=== PATIENT | female | born 1955 | race Caucasian/White ===

== ENCOUNTER → 2016-09-06 | Outpatient (CLI) | payer OTHER ==
[~2016-09-06] MED LIST: ALBUAER2 INH; AMLO10TA2 PO; BENA20TA14 PO; BUPRTAB PO; ERGO500011 PO; FLNIN/; FLUO20CA36 PO; FLV1 PO; LBT/300 PO; LBT200 PO; LPT/20 PO; METF-384 PO; METH2.5T PO; NITR100C2 PO; ONDA4TAB46 PO; SITA1TAB27 PO; VNTHFA/IN INH
[2016-09-06 13:03] LABS: ESTIMATED AVERAGE GLUCOSE 203 mg/dl; HA1C FLAG Normal (Normal)
[2016-09-06 13:17] LABS: ALT/SGPT 47 U/L (12-78); AST/SGOT 49 U/L (15-37); BLOOD UREA NITROGEN 12 mg/dl (7-18); BUN/CREATININE RATIO 14.6 (10-20); CALCIUM 10.2 mg/dl (8.5-10.1); CARBON DIOXIDE 25 mmol/L (21-32); CHLORIDE 102 mmol/L (98-107); CREATININE 0.81 mg/dl (0.60-1.20); GLUCOSE 211 mg/dl (70-99); POTASSIUM 4.3 mmol/L (3.5-5.1); SODIUM 137 mmol/L (136-145)
[2016-09-06 13:28] LABS: ALKALINE PHOSPHATASE 112 U/L (45-117); CHOLESTEROL 146 mg/dl (0-200); CHOLESTEROL/HDL RATIO 2.9; HDL CHOLESTEROL 50 mg/dl; LDL CHOLESTEROL CALCULATED 59 mg/dl; TRIGLYCERIDES 184 mg/dl (0-150); VERY LOW DENSITY LIPOPROT CALC 37 mg/dl
== END | disposition home or self-care (01) ==
LOC: C.LAB1850 09:58
PROVIDERS: ATTEND Family Medicine
DX: L40.50 Arthropathic psoriasis, unspecified (principal); E78.5 Hyperlipidemia, unspecified; I10 Essential (primary) hypertension; F32.9 Major depressive disorder, single episode, unspecified; E11.9 Type 2 diabetes mellitus without complications; Z11.59 Encounter for screening for other viral diseases; E55.9 Vitamin D deficiency, unspecified

== ENCOUNTER → 2016-09-23 | Outpatient (CLI) | payer OTHER ==
[~2016-09-23] MED LIST changes: +ERGO1CAP41 PO; -ERGO500011 PO; +NITR100C PO; -NITR100C2 PO
--- NOTE | 2016-09-24 12:31 | MAMMOGRAPHY REPORT ---
BILATERAL DIGITAL SCREENING MAMMOGRAM WITH CAD: 09/23/2016 CLINICAL HISTORY: Routine screening. TECHNIQUE: Current study was also evaluated with a Computer Aided Detection (CAD) system. Bilateral CC and MLO views were obtained. COMPARISON: Comparison is made to exams dated: 07/16/2015 mammogram, 06/27/2014 ultrasound, 06/27/2014 ma mmogram, and 05/29/2014 mammogram - [facility]. BREAST COMPOSITION: There are scattered areas of fibroglandular density in both breasts. FINDINGS: There is an asymmetry in the right lateral posterior breast at approximately 9:00, which a ppears stable in size compared to prior exams, however, on one of the cc views there is questionable architectural distortion associated with the asymmetry. Although the questionable distortion may be related to a skin fold, recommend spot compression tomosynthesis views and possible breast ultrasound for further evaluation. Calcifications are seen in association with the asymmetry, which appear unc hanged. The remainder of both breasts are stable compared to prior exams, without suspicious masses, calcific ations, or areas of architectural distortion noted. Bilateral asymmetries and scattered bilateral be nign-appearing calcifications are not significantly changed. IMPRESSION: ACR BI-RADS CATEGORY 0: INCOMPLETE EVALUATION: NEED ADDITIONAL IMAGING EVALUATION Right breast asymmetry with associated calcifications and possible associated architectural distortio n, for which additional imaging evaluation is recommended. The patient will be called to schedule an appointment. Approximately 10% of breast cancers are not detected with mammography. A negative mammographic report should not delay biopsy if a clinically suggestive mass is present. Alba Montague M.D. ah/:09/23/2016 16:34:15 Collection Team Lead: River DOLAN(Bowen)(M), [facility] letter sent: Addl Imaging 0 BI-RADS Code: ACR BI-RADS Category 0: Incomplete Evaluation: Need Additional Imaging Evaluation
== END | disposition home or self-care (01) ==
LOC: C.MAMM 10:06
PROVIDERS: ATTEND Nurse Practitioner Adult Health
DX: Z12.31 Encounter for screening mammogram for malignant neoplasm of breast (principal); N64.89 Other specified disorders of breast; R92.1 Mammographic calcification found on diagnostic imaging of breast

== ENCOUNTER 2016-09-27 11:34 | Emergency (ER) | payer OTHER ==
[~2016-09-27] VITALS: Ht 165.1 cm; Wt 142.8 kg
[~2016-09-27 11:34] MED LIST changes: -BUPRTAB PO; -ERGO1CAP41 PO; -FLV1 PO; -LBT/300 PO; -LPT/20 PO; -METF-384 PO; -METH2.5T PO; -ONDA4TAB46 PO; -SITA1TAB27 PO; -VNTHFA/IN INH
[2016-09-27 11:54] VITALS: TEMP 36.8; Ht 165.1 cm; Wt 142.8 kg
[2016-09-27 12:30] LABS: BASO % 0.3 %; BASO ABS # 0.03 K/uL (0-0.2); COMPLETE YES; EOS % 1.8 %; HEMATOCRIT 33.3 % (37-47); IG% 0.5 %; LYMPH % 18.3 %; MEAN CELL VOLUME 86.7 fL (80-100); MEAN CORPUSCULAR HEMOGLOBIN 25.8 pg (25-34); MEAN CORPUSCULAR HGB CONC 29.7 g/dl (32-36); MONO % 4.6 %; NEUT % 74.5 %; PLATELET COUNT 387 K/uL (130-400); RED BLOOD COUNT 3.84 M/uL (4.2-5.4); WHITE BLOOD COUNT 9.86 K/uL (4.8-10.8)
[2016-09-27 12:46] LABS: BUN/CREATININE RATIO 14.3 (10-20); CREATININE 0.8 mg/dl (0.60-1.20); POTASSIUM 3.9 mmol/L (3.5-5.1)
[2016-09-27] MEDS ORDERED: LPT/20 PO (13:24)
[2016-09-27] MEDS ORDERED: BUPRTAB PO (13:24)
[2016-09-27] MEDS ORDERED: METH2.5T PO (13:24)
[2016-09-27] MEDS ORDERED: LBT/300 PO (13:24)
[2016-09-27] MEDS ORDERED: METF-384 PO (13:24)
[2016-09-27] MEDS ORDERED: FLV1 PO (13:24)
[2016-09-27] MEDS ORDERED: SITA1TAB27 PO (13:24)
[2016-09-27] MEDS ORDERED: ERGO1CAP41 PO (13:25)
[2016-09-27] MEDS ORDERED: VNTHFA/IN INH (13:26)
[2016-09-27] MEDS ORDERED: SODIUM CHLORIDE 0.9% 1000ML 1,000 ML IV ONE (13:30)
[2016-09-27] MEDS ORDERED: ONDANSETRON INJ 2 MG/ML 2 ML VIAL IV PRN (13:30)
[2016-09-27 13:55] LABS: URINE APPEARANCE CLEAR (CLEAR); URINE BILIRUBIN NEG (NEG); URINE COLOR YELLOW; URINE NITRITE NEG (NEG); URINE SPECIFIC GRAVITY 1.018 (1.000-1.030); UROBILINOGEN NEG (NEG)
[2016-09-27 13:59] LABS: MANUAL MICROSCOPIC REQUIRED? NO; REVIEW REQ? NO
--- NOTE | 2016-09-27 16:42 | DIAGNOSTIC IMAGING REPORT ---
CT SCAN OF THE ABDOMEN AND PELVIS WITH IV CONTRAST CLINICAL HISTORY: Generalized abdominal pain. Nausea and vomiting. Diarrhea. COMPARISON STUDY: No priors. TECHNIQUE: Following the IV administration of 119 cc of Optiray 320, CT scan of the abdomen and pelvis is performed from the lung bases to the proximal femora. Images are reviewed in the axial, sagittal, and coronal planes. IV contrast was administered without complication. Automated dose control exposure was utilized. The examination is degraded by large body habitus, and by streak artifact from the body wall abutting the CT gantry. CT DOSE: 1710.81 mGy.cm FINDINGS: Lung bases: The heart is normal in size and without pericardial effusion. The coronary arteries are densely calcified. The lung bases are clear. There is a tiny hiatal hernia. Liver: Evaluation of the liver significantly degraded by streak artifact. The contrast-enhanced liver is enlarged, measuring 24.6 cm in length. The liver demonstrates diffusely diminished attenuation consistent with severe hepatic steatosis. Fatty sparing is noted adjacent to gallbladder fossa. There is no intrahepatic biliary ductal dilatation. The hepatic veins and portal veins are patent. Gallbladder: Unremarkable. Spleen: The spleen is mildly enlarged measuring 13.8 cm in length. Pancreas: There is mild/moderate glandular atrophy of the pancreas. The pancreas is otherwise grossly unremarkable. Adrenal glands: Unremarkable. Kidneys: The contrast enhanced kidneys demonstrate mild cortical atrophy and are without hydronephrosis. The kidneys enhance symmetrically. Renal cysts measure up to 2.3 cm. Additional subcentimeter cortical hypodensities also likely represent cysts but are too small for definitive catheterization. Abdominal vasculature: The abdominal aorta is normal in course and caliber noting moderate atherosclerotic calcification. Bowel: The small bowel and colon are normal in course and caliber. The appendix is not identified and reported surgically absent. Peritoneum: There is no intraperitoneal free air or abdominal ascites. A small fat-containing umbilical hernia is noted. Lymphadenopathy: None. Pelvic viscera: The bladder, uterus, and adnexa are normal as visualized. Skeletal structures: The skeletal structures are osteopenic. There is mild lumbosacral spondylosis. No lytic or blastic lesions are seen. IMPRESSION: 1. There are no acute infectious or inflammatory findings in the abdomen or pelvis. 2. Hepatomegaly and severe hepatic steatosis. 3. Mild splenomegaly. 4. Additional findings as above. Electronically signed by: Luis Antonio Avelar M.D. 09/27/2016 4:41 PM Dictated Date/Time: 09/27/2016 4:36 PM
[2016-09-27 18:50] VITALS: BP 160/88; PULSE 92; O2SAT 96
[2016-09-27] MEDS ORDERED: ONDA4TAB46 PO (18:50)
[2016-09-27] MEDS ORDERED: ONDANSETRON HOME PACK 4MG OD TAB PO ONE (19:00)
--- NOTE | 2016-09-27 22:51 | EMERGENCY ROOM VISIT NOTE ---
History First contact with patient: 13:07 Chief Complaint: NAUSEA Stated Complaint: n,v Nursing Triage Summary: pt arrives via BLS Per BLS she reports nausea and vomiting, had 3 episodes of dry heaving They also reported she increased her metformin to 2000MG from 1000MG Per patient she started last night with diarrhea, it went away throughout the night, she is now nauseous and has been dry heaving she also reports general achy body and a head ache History of Present Illness The patient is a 61 year old female who presents to the Emergency Room with complaints of nausea, vomiting and diarrhea that have been going on for approximately 3 days. The patient initially started with watery diarrhea. She also complained of some sharp abdominal pain that now she describes as a cramping sensation in the mid upper abdomen. She describes it more as an annoyance as opposed to a sharp pain. Her vomiting started this morning. It was bilious in nature. She also reports dry heaving. She denies any fever or chills. She denies any sick contacts. She has not recently been on antibiotics. No recent travel. The patient did however recently have a increase in her dose of metformin. They increased her dose from 500 mg twice daily to 1000 g twice daily on Tuesday. Her symptoms started shortly thereafter. Review of Systems 10 system review performed and negative unless noted in HPI or below Past Medical/Surgical History Hypertension Type 2 diabetes Hyperlipidemia History of hemorrhagic stroke Status post cholecystectomy, appendectomy Family History Hypertension Diabetes Social History Smoking Status: Never Smoker Drug Use: none Housing Status: lives alone Occupation Status: employed Current/Historical Medications Scheduled Amlodipine Besylate (Norvasc), 10 MG PO DAILY Atorvastatin (Atorvastatin Calcium), 20 MG PO DAILY Bupropion Hcl (Wellbutrin Xl), 150 MG PO DAILY Ergocalciferol (Vitamin D 12482 Unit), 50,000 UNITS PO WK Fluticasone Propionate (Fluticasone Propionate), 1 SPRAY NA DAILY Folic Acid (Folic Acid), 1 MG PO DAILY Labetalol Hcl (Normodyne), 300 MG PO DAILY Metformin Hcl (Glucophage), 1,000 MG PO Q12 Methotrexate (Methotrexate), 20 MG PO WK Sitagliptin (Januvia), 100 MG PO DAILY Scheduled PRN Albuterol Hfa (Ventolin Hfa), 2 PUFFS INH Q4 PRN for SOB/Wheezing Ondansetron Hcl (Zofran), 4 MG PO Q6H PRN for Nausea Allergies Coded Allergies: Aspirin (Verified Allergy, Unknown, hives, 04/16/14) Penicillins (Verified Allergy, Unknown, hives, 04/16/14) Physical Exam Vital Signs Date Time Temp Pulse Resp B/P (MAP) Pulse Ox O2 Delivery O2 Flow Rate FiO2 09/27/16 18:50 92 160/88 96 09/27/16 16:36 82 20 154/67 96 Room Air 09/27/16 16:04 85 25 94 09/27/16 15:36 159/92 09/27/16 15:34 92 23 173/105 96 09/27/16 15:34 91 20 159/92 98 Room Air 09/27/16 15:04 88 91 09/27/16 14:34 88 93 09/27/16 14:32 162/86 09/27/16 14:32 88 16 162/86 95 Room Air 09/27/16 14:04 84 24 95 09/27/16 13:34 87 19 98 09/27/16 13:04 81 25 94 09/27/16 12:36 81 09/27/16 12:34 84 25 95 09/27/16 12:33 82 16 140/71 96 Room Air 09/27/16 12:31 140/71 09/27/16 11:54 36.8 83 20 163/92 96 Room Air Physical Exam VITALS: Vitals are noted on the nurse's note and reviewed by myself. Vital signs stable. GENERAL: 61-year-old obese female, in no acute distress, nondiaphoretic, well- developed well-nourished. SKIN: The skin was warm and dry HEAD: Normocephalic atraumatic. MOUTH: Mucous membranes fairly moist HEART: Regular rate and rhythm without murmurs gallops or rubs. LUNGS: Clear to auscultation bilaterally without wheezes, rales or rhonchi. No accessory muscle use. ABDOMEN: Positive bowel sounds x 4.Soft, tenderness to palpation noted in the right upper quadrant. No guarding or rebound tenderness appreciated. MUSCULOSKELETAL: No muscle atrophy, erythema, or edema noted. Strength 5/5 throughout. NEURO: Patient was alert and oriented to person place and time. No focal neurological deficits. Medical Decision & Procedures ER Provider Diagnostic Interpretation: Patient Name: JEMMA LUO Unit Number: [id number] Dictated: 09/27/161635 Transcribed: 09/27/161635 EV Printed Date/Time: [~ rep prt dt]/[~ rep prt tm] [~ rep ct labl] - [~ rep ct ivnm] [facility] [place] [place] [address] Dictated: 09/27/161635 Transcribed: 09/27/161635 EV Printed Date/Time: [~ rep prt dt]/[~ rep prt tm] [~ rep ct labl] - [~ rep ct ivnm] Patient: JEMMA LUO Address1: [address] [place] [address] Rec: [id number] Address2: Acct ID: [id number] [place] Zip: [place] [address] Date: 1955 Sex: F Room/Bed: Ref Phy: Karen Moran C.R.NPaigePPaige SC: COURTNEY Att Phy: Report #: [id number] Kenzie Phy: Karen Moran C.R.NJules Test: APW Admit Phy: Program Evaluation Consultant: CANDY Interpreting Phy: Luis Antonio Avelar M.D. Diagnosis: n,v Ordering Phy: Reena Moran PA-C Service Date: 09/27/16 Admit Date: 09/27/16 MNE: [id number] CONF: DICTATED BY: Luis Antonio Avelar M.D.]] CC: Gallo Mcfarlane M.D. Ritter, Heidi, C.R.N.P. Urban, Angela P., PA-C Endcc: [~ rep ct add3]] CT SCAN OF THE ABDOMEN AND PELVIS WITH IV CONTRAST CLINICAL HISTORY: Generalized abdominal pain. Nausea and vomiting. Diarrhea. COMPARISON STUDY: No priors. TECHNIQUE: Following the IV administration of 119 cc of Optiray 320, CT scan of the abdomen and pelvis is performed from the lung bases to the proximal femora. Images are reviewed in the axial, sagittal, and coronal planes. IV contrast was administered without complication. Automated dose control exposure was utilized. The examination is degraded by large body habitus, and by streak artifact from the body wall abutting the CT gantry. CT DOSE: 1710.81 mGy.cm FINDINGS: Lung bases: The heart is normal in size and without pericardial effusion. The coronary arteries are densely calcified. The lung bases are clear. There is a tiny hiatal hernia. Liver: Evaluation of the liver significantly degraded by streak artifact. The contrast-enhanced liver is enlarged, measuring 24.6 cm in length. The liver demonstrates diffusely diminished attenuation consistent with severe hepatic steatosis. Fatty sparing is noted adjacent to gallbladder fossa. There is no intrahepatic biliary ductal dilatation. The hepatic veins and portal veins are patent. Gallbladder: Unremarkable. Spleen: The spleen is mildly enlarged measuring 13.8 cm in length. Pancreas: There is mild/moderate glandular atrophy of the pancreas. The pancreas is otherwise grossly unremarkable. Adrenal glands: Unremarkable. Kidneys: The contrast enhanced kidneys demonstrate mild cortical atrophy and are without hydronephrosis. The kidneys enhance symmetrically. Renal cysts measure up to 2.3 cm. Additional subcentimeter cortical hypodensities also likely represent cysts but are too small for definitive catheterization. Abdominal vasculature: The abdominal aorta is normal in course and caliber noting moderate atherosclerotic calcification. Bowel: The small bowel and colon are normal in course and caliber. The appendix is not identified and reported surgically absent. Peritoneum: There is no intraperitoneal free air or abdominal ascites. A small fat-containing umbilical hernia is noted. Lymphadenopathy: None. Pelvic viscera: The bladder, uterus, and adnexa are normal as visualized. Skeletal structures: The skeletal structures are osteopenic. There is mild lumbosacral spondylosis. No lytic or blastic lesions are seen. IMPRESSION: 1. There are no acute infectious or inflammatory findings in the abdomen or pelvis. 2. Hepatomegaly and severe hepatic steatosis. 3. Mild splenomegaly. 4. Additional findings as above. Electronically signed by: Luis Antonio Avelar M.D. 09/27/2016 4:41 PM Dictated Date/Time: 09/27/2016 4:36 PM The status of this report is Signed. Draft = Not yet reviewed or approved by Radiologist. Signed = Reviewed and approved by Radiologist. <AttendingPhy></AttendingPhy> <FamilyPhy>Karen Moran ,Joi.R.N.P.</FamilyPhy> < PrimaryPhy>Karen Moran C.R.N.P.</PrimaryPhy> <UnitNumber>[id number]</ UnitNumber> <VisitNumber>[id number]</VisitNumber> <PatientName>JEMMA LUO</PatientName> <DateOfBirth>1955</DateOfBirth> <Location>[facility]</ Location> <ServiceDate>09/27/16</ServiceDate> <MNE>ESINDI</MNE> <OrderingPhy> Reena Moran PA-C</OrderingPhy> <OrderingPhyMNE>f rep ord dr kennedy</ OrderingPhyMNE> <DictatingPhyMNE>f rep dict dr kennedy</DictatingPhyMNE> <CCListMNE> f rep ct mne</CCListMNE> <AdmittingPhyMNE>f pt admit dr kennedy</AdmittingPhyMNE> < AttendingPhyMNE>f pt attend dr kennedy</AttendingPhyMNE> <ConsultingPhyMNE>f pt consult dr kennedy</ConsultingPhyMNE> <FamilyPhyMNE>f pt fam dr kennedy</FamilyPhyMNE> <OtherPhyMNE>f pt other dr kennedy</OtherPhyMNE> < PrimaryPhyMNE>f pt prim care dr kennedy</PrimaryPhyMNE> <ReferringPhyMNE>f pt referring dr kennedy</ReferringPhyMNE> Laboratory Results 09/27/16 11:51 Red Blood Count 3.84, Mean Corpuscular Volume 86.7, Mean Corpuscular Hemoglobin 25.8, Mean Corpuscular Hemoglobin Concent 29.7, Mean Platelet Volume 10.0, Neutrophils (%) (Auto) 74.5, Lymphocytes (%) (Auto) 18.3, Monocytes (%) (Auto) 4.6, Eosinophils (%) (Auto) 1.8, Basophils (%) (Auto) 0.3, Neutrophils # (Auto) 7.35, Lymphocytes # (Auto) 1.80, Monocytes # (Auto) 0.45, Eosinophils # (Auto) 0.18, Basophils # (Auto) 0.03 09/27/16 11:51 Test 09/27/16 11:51 09/27/16 12:28 09/27/16 13:29 White Blood Count 9.86 K/uL (4.8-10.8) Red Blood Count 3.84 M/uL (4.2-5.4) Hemoglobin 9.9 g/dL (12.0-16.0) Hematocrit 33.3 % (37-47) Mean Corpuscular Volume 86.7 fL (80-100) Mean Corpuscular Hemoglobin 25.8 pg (25-34) Mean Corpuscular Hemoglobin Concent 29.7 g/dl (32-36) Platelet Count 387 K/uL (130-400) Mean Platelet Volume 10.0 fL (7.4-10.4) Neutrophils (%) (Auto) 74.5 % Lymphocytes (%) (Auto) 18.3 % Monocytes (%) (Auto) 4.6 % Eosinophils (%) (Auto) 1.8 % Basophils (%) (Auto) 0.3 % Neutrophils # (Auto) 7.35 K/uL (1.4-6.5) Lymphocytes # (Auto) 1.80 K/uL (1.2-3.4) Monocytes # (Auto) 0.45 K/uL (0.11-0.59) Eosinophils # (Auto) 0.18 K/uL (0-0.5) Basophils # (Auto) 0.03 K/uL (0-0.2) RDW Standard Deviation 62.7 fL (36.4-46.3) RDW Coefficient of Variation 19.7 % (11.5-14.5) Immature Granulocyte % (Auto) 0.5 % Immature Granulocyte # (Auto) 0.05 K/uL (0.00-0.02) Anion Gap 9.0 mmol/L (3-11) Est Creatinine Clear Calc Drug Dose 105.1 ml/min Estimated GFR () 91.6 Estimated GFR (Non- 79.0 BUN/Creatinine Ratio 14.3 (10-20) Calcium Level 10.0 mg/dl (8.5-10.1) Total Bilirubin 0.4 mg/dl (0.2-1) Aspartate Amino Transf (AST/SGOT) 63 U/L (15-37) Alanine Aminotransferase (ALT/SGPT) 51 U/L (12-78) Alkaline Phosphatase 99 U/L (45-117) Total Protein 6.9 gm/dl (6.4-8.2) Albumin 3.4 gm/dl (3.4-5.0) Globulin 3.5 gm/dl (2.5-4.0) Albumin/Globulin Ratio 1.0 (0.9-2) Lipase 140 U/L (73-393) Bedside Glucose 183 mg/dl (70-90) Urine Color YELLOW Urine Appearance CLEAR (CLEAR) Urine pH 5.0 (4.5-7.5) Urine Specific [place] 1.018 (1.000-1.030) Urine Protein NEG (NEG) Urine Glucose (UA) NEG (NEG) Urine Ketones NEG (NEG) Urine Occult Blood NEG (NEG) Urine Nitrite NEG (NEG) Urine Bilirubin NEG (NEG) Urine Urobilinogen NEG (NEG) Urine Leukocyte Esterase NEG (NEG) Medications Administered Medications (Trade) Dose Ordered Sig/Carine Route Start Time Stop Time Status Last Admin Dose Admin Sodium Chloride 1,000 ml @ 999 mls/hr Q1H1M ONCE IV 09/27/16 13:30 09/27/16 14:30 DC 09/27/16 13:30 999 MLS/HR Ondansetron HCl (Zofran Inj) 4 mg Q2H PRN IV 09/27/16 13:30 09/27/16 19:18 DC 09/27/16 13:39 4 MG ED Course Patient was seen and examined A saline lock was established, labs were drawn The patient was given 1 L normal saline bolus. She was also given Zofran [address] the abdomen and pelvis were performed The patient was reevaluated. Her nausea was better. She had one more bout of diarrhea. She was given an additional 500 mL of normal saline. The patient was again reassessed. We discussed the results of her imaging and lab work. A rectal exam was performed. The patient was given crackers and cristobal john, which she tolerated without any nausea Discharge instructions were reviewed, and the patient was discharged in good condition Medical Decision DIFFERENTIAL DIAGNOSIS: Gastroenteritis, Hepatitis, cholecystitis, cholangitis, biliary colic, pancreatitis, appendicitis, inguinal hernia, nephrolithiasis, inflammatory bowel disease, mesenteric adenitis, peptic ulcer disease, GERD, gastritis, pancreatitis,, bowel obstruction, splenic infarct, diverticulitis, mesenteric ischemia, metabolic, peritonitis, GI bleeding among others. This patient is a 61-year-old female with a main complaint of vomiting, abdominal pain and diarrhea over the last several days. On exam, she was mildly tender in the right upper quadrant. Given her recent medication change ( increase in metformin)pancreatitis was suspected. Imaging did not show any signs of pancreatitis or any acute findings such as an infectious etiology- colitis. She is afebrile. There is no leukocytosis. I reviewed her outpatient records. The patient's hemoglobin has dropped from 12 in 2015 to 10 a rectal exam was guaiac negative today. She denied any signs of GI bleeding such as dark stools or bright red blood in her stool. I encouraged her to follow up closely with her primary care physician, particularly in regards to her metformin and her H&H. The patient's metformin was changed the day her symptoms started. This could be partially medication related. Obviously, the patient was instructed to hold her metformin temporarily given the IV dye that she received for her CAT scan. She was instructed to follow-up with her primary care physician to further discuss the dosage. She was comfortable being discharged home. She agrees to return to the emergency department with any new or worsening symptoms. Impression Primary Impression: Abdominal pain, vomiting, and diarrhea Departure Information Prescriptions Ondansetron Hcl (ZOFRAN) 4 Mg Tab 4 MG PO Q6H Y for Nausea, #20 TAB Prov: Reena Moran PA-C 09/27/16 Referrals Karen Moran C.R.N.P. (PCP) Patient Instructions My [facility]
== END 2016-09-27 18:50 | disposition home or self-care (01) ==
LOC: EDBD 11:34 → C.EDB 11:35
DX: R10.10 Upper abdominal pain, unspecified (principal); R11.2 Nausea with vomiting, unspecified; R19.7 Diarrhea, unspecified; I10 Essential (primary) hypertension; E11.9 Type 2 diabetes mellitus without complications; E78.5 Hyperlipidemia, unspecified; Z86.73 Personal history of transient ischemic attack (TIA), and cerebral infarction without residual deficits; Z79.84 Long term (current) use of oral hypoglycemic drugs; Z83.3 Family history of diabetes mellitus; Z82.49 Family history of ischemic heart disease and other diseases of the circulatory system

== ENCOUNTER → 2016-10-05 | Outpatient (CLI) | payer OTHER ==
[~2016-10-05] MED LIST changes: -ALBUAER2 INH; -BENA20TA14 PO; +BUPRTAB PO; +ERGO1CAP41 PO; -FLUO20CA36 PO; +FLV1 PO; +LBT/300 PO; -LBT200 PO; +LPT/20 PO; +METF-384 PO; +METH2.5T PO; -NITR100C PO; +ONDA4TAB46 PO; +SITA1TAB27 PO; +VNTHFA/IN INH
--- NOTE | 2016-10-05 13:54 | MAMMOGRAPHY REPORT ---
UNILATERAL RIGHT DIGITAL DIAGNOSTIC MAMMOGRAM TOMOSYNTHESIS: 10/05/2016 CLINICAL HISTORY: 61-year-old woman called back from screening mammography for questionable obiee obia solution architect ural distortion associated with an asymmetry in the lateral posterior right breast. TECHNIQUE: Spot magnification right CC, ML and spot compression CC and MLO 2-D digital and tomosynth esis images of the right breast were obtained. COMPARISON: Comparison is made to exams dated: 09/23/2016 mammogram, 07/16/2015 mammogram, 06/27/2014 ul trasound, 06/27/2014 mammogram, and 05/29/2014 mammogram - [facility]. BREAST COMPOSITION: The tissue of the right breast is almost entirely fatty. FINDINGS: There is a focal asymmetry with associated obtained and amorphous microcalcification in th e approximate 8:00 posterior right breast, measuring 6 x 18 mm. This asymmetry is stable in size and the microcalcifications appear similar dating back to at least 05/29/2014. A portion of this asymme try and microcalcification, the anterior aspect, or present on the outside mammogram dated 02/24/2011 , but the entire asymmetry is not seen well enough to compare accurate measurements. There is no per sistent architectural distortion on the spot compression tomosynthesis views in this area. Given at least 2 years of mammographic stability this is most likely benign. However, given the focal nature of the asymmetry and microcalcification, definitive characterization with tissue sampling is recommen ded to exclude the possibility of DCIS. IMPRESSION: ACR BI-RADS CATEGORY 4B: INTERMEDIATE SUSPICION FOR MALIGNANCY With the slight differences in positioning and technique, the 6 x 18 mm focal asymmetry with associat ed punctate and amorphous microcalcification in the 8:00 posterior right breast appears stable dating back to June 2014. The anterior portion of this asymmetry and microcalcification was visualized da ting back to 2010, but accurate comparison measurements could not be obtained from that exam. There is no definite associated distortion, however the asymmetry remains indeterminate given the discrete focal nature and definitive characterization with a stereotactic guided biopsy was recommended. Thes e results and recommendations were discussed with the patient at the time of the exam and she prefers to follow this mammographic finding in 6 months. After further discussion this seems reasonable giv en that it does not appear significantly changed over the past 2 years, and will therefore likely not be significantly changed in 6 months. Approximately 10% of breast cancers are not detected with mammography. A negative mammographic report should not delay biopsy if a clinically suggestive mass is present. Vannesa Heaton M.D. ay/:10/05/2016 12:42:22 Licensed Loan Officer Assistant: Chayo GARCIA)(Dom), [facility] letter sent: Abnormal 4/5 BI-RADS Code: ACR BI-RADS Category 4B: Intermediate Suspicion For Malignancy
== END | disposition home or self-care (01) ==
LOC: C.MAMM 10:17
PROVIDERS: ATTEND Nurse Practitioner Adult Health
DX: R92.2 Inconclusive mammogram (principal); N64.89 Other specified disorders of breast

== ENCOUNTER → 2016-10-07 | Outpatient (CLI) | payer OTHER ==
[2016-10-07 14:36] LABS: BASO % 0.5 %; BASO ABS # 0.06 K/uL (0-0.2); COMPLETE YES; EOS % 1.8 %; HEMATOCRIT 34.1 % (37-47); IG% 0.7 %; LYMPH % 16.5 %; LYMPH ABS # 1.88 K/uL (1.2-3.4); MEAN CELL VOLUME 86.5 fL (80-100); MEAN CORPUSCULAR HEMOGLOBIN 26.1 pg (25-34); MEAN CORPUSCULAR HGB CONC 30.2 g/dl (32-36); MEAN PLATELET VOLUME 9.8 fL (7.4-10.4); MONO % 8.9 %; NEUT % 71.6 %; PLATELET COUNT 420 K/uL (130-400); RED BLOOD COUNT 3.94 M/uL (4.2-5.4); WHITE BLOOD COUNT 11.39 K/uL (4.8-10.8)
[2016-10-07 14:51] LABS: BLOOD UREA NITROGEN 9 mg/dl (7-18); BUN/CREATININE RATIO 10.7 (10-20); CALCIUM 10.5 mg/dl (8.5-10.1); CARBON DIOXIDE 27 mmol/L (21-32); CHLORIDE 102 mmol/L (98-107); CREATININE 0.87 mg/dl (0.60-1.20); GLUCOSE 181 mg/dl (70-99); POTASSIUM 4.5 mmol/L (3.5-5.1); SODIUM 137 mmol/L (136-145)
[2016-10-07 14:52] LABS: TOTAL IRON BINDING CAPACITY 391 mcg/dl (250-450)
== END | disposition home or self-care (01) ==
LOC: C.LAB1850 12:40
PROVIDERS: ATTEND Nurse Practitioner Adult Health
DX: D64.9 Anemia, unspecified (principal)

== ENCOUNTER → 2016-12-07 | Outpatient (CLI) | payer OTHER ==
[2016-12-07 14:54] LABS: HEMATOCRIT 32.6 % (37-47); MEAN CELL VOLUME 84.5 fL (80-100); MEAN CORPUSCULAR HEMOGLOBIN 25.4 pg (25-34); MEAN CORPUSCULAR HGB CONC 30.1 g/dl (32-36); MEAN PLATELET VOLUME 9.9 fL (7.4-10.4); PLATELET COUNT 431 K/uL (130-400); RED BLOOD COUNT 3.86 M/uL (4.2-5.4); WHITE BLOOD COUNT 11.65 K/uL (4.8-10.8)
[2016-12-07 15:02] LABS: ALT/SGPT 45 U/L (12-78); AST/SGOT 43 U/L (15-37); BLOOD UREA NITROGEN 11 mg/dl (7-18); BUN/CREATININE RATIO 12.3 (10-20); CALCIUM 10.8 mg/dl (8.5-10.1); CARBON DIOXIDE 28 mmol/L (21-32); CHLORIDE 101 mmol/L (98-107); CREATININE 0.86 mg/dl (0.60-1.20); GLUCOSE 169 mg/dl (70-99); POTASSIUM 4.2 mmol/L (3.5-5.1); SODIUM 134 mmol/L (136-145)
[2016-12-07 15:05] LABS: ALB/GLOB RATIO 0.9 (0.9-2); ALKALINE PHOSPHATASE 112 U/L (45-117)
[2016-12-08 05:59] LABS: ESTIMATED AVERAGE GLUCOSE 177 mg/dl; HA1C FLAG Normal (Normal)
== END | disposition home or self-care (01) ==
LOC: C.LAB1850 12:58
PROVIDERS: ATTEND Nurse Practitioner Adult Health
DX: Z79.899 Other long term (current) drug therapy (principal)

== ENCOUNTER → 2016-12-16 | Outpatient (CLI) | payer OTHER ==
[2016-12-16 14:59] LABS: ALT/SGPT 38 U/L (12-78); AST/SGOT 33 U/L (15-37); BLOOD UREA NITROGEN 11 mg/dl (7-18); BUN/CREATININE RATIO 11.9 (10-20); CALCIUM 10.4 mg/dl (8.5-10.1); CARBON DIOXIDE 29 mmol/L (21-32); CHLORIDE 102 mmol/L (98-107); GLUCOSE 169 mg/dl (70-99); POTASSIUM 4.4 mmol/L (3.5-5.1); SODIUM 135 mmol/L (136-145)
[2016-12-16 15:02] LABS: ALKALINE PHOSPHATASE 118 U/L (45-117)
--- NOTE | 2016-12-27 09:51 | CODING QUERY MEDICAL NECESSITY ---
CQSUPPORTING DIAGNOSIS NEEDED A supporting diagnosis is required for the test/procedure performed on this patient in order for us to be reimbursed by the patient's insurance. Please provide a supporting diagnosis for the following test/procedure listed below next to the test name along with your signature. *If there is no additional diagnosis for this patient that would support the following test/procedure please document that below next to the test/procedure. Test(s)/Procedure(s) that require a supporting diagnosis: DOS 12/16/16 VITAMIN D TEST Provider Signature: Date: Thank you Jumana Waller Health Information Management Once completed, please kindly fax back to [phone] For questions please call [phone]
== END | disposition home or self-care (01) ==
LOC: C.LAB1850 12:56
PROVIDERS: ATTEND Nurse Practitioner Adult Health
DX: E83.52 Hypercalcemia (principal)

== ENCOUNTER → 2017-01-10 | Outpatient (CLI) | payer OTHER ==
[2017-01-10 15:01] LABS: BASO % 0.3 %; BASO ABS # 0.03 K/uL (0-0.2); EOS % 1.8 %; HEMATOCRIT 32.8 % (37-47); IG% 0.4 %; LYMPH % 13.3 %; LYMPH ABS # 1.35 K/uL (1.2-3.4); MEAN CELL VOLUME 84.3 fL (80-100); MEAN CORPUSCULAR HEMOGLOBIN 25.2 pg (25-34); MEAN CORPUSCULAR HGB CONC 29.9 g/dl (32-36); MEAN PLATELET VOLUME 9.8 fL (7.4-10.4); MONO % 5.7 %; NEUT % 78.5 %; PLATELET COUNT 436 K/uL (130-400); RED BLOOD COUNT 3.89 M/uL (4.2-5.4); WHITE BLOOD COUNT 10.12 K/uL (4.8-10.8)
[2017-01-10 15:32] LABS: ALT/SGPT 46 U/L (12-78); AST/SGOT 44 U/L (15-37); BLOOD UREA NITROGEN 12 mg/dl (7-18); BUN/CREATININE RATIO 12.4 (10-20); CALCIUM 10.5 mg/dl (8.5-10.1); CARBON DIOXIDE 25 mmol/L (21-32); CHLORIDE 100 mmol/L (98-107); CREATININE 0.99 mg/dl (0.60-1.20); GLUCOSE 185 mg/dl (70-99); POTASSIUM 4.5 mmol/L (3.5-5.1); SODIUM 135 mmol/L (136-145)
[2017-01-10 15:35] LABS: COMPLETE YES; HYPOCHROMIA PRESENT; POLYCHROMASIA 1+
[2017-01-10 15:49] LABS: ALKALINE PHOSPHATASE 113 U/L (45-117)
== END | disposition home or self-care (01) ==
LOC: C.LAB1850 12:28
PROVIDERS: ATTEND Nurse Practitioner Adult Health
DX: R80.9 Proteinuria, unspecified (principal); D64.9 Anemia, unspecified

== ENCOUNTER → 2017-01-17 | Outpatient (CLI) | payer OTHER ==
[2017-01-17 15:00] LABS: CALCIUM URINE 5.8 mg/dl; CREATININE, URINE 38.1 mg/dl
[2017-01-19 16:25] LABS: ALBUMIN 3.8 G/DL (3.8-4.8); GAMMA GLOBULIN 0.8 G/DL (0.8-1.7); TOTAL PROTEIN 6.7 G/DL (6.2-8.3)
== END | disposition home or self-care (01) ==
LOC: C.LAB1850 12:21
PROVIDERS: ATTEND Internal Medicine Endocrinology, Diabetes & Metabolism
DX: E21.0 Primary hyperparathyroidism (principal); M81.0 Age-related osteoporosis without current pathological fracture

== ENCOUNTER → 2017-03-14 | Day surgery (SDC) | payer OTHER ==
[2017-03-07 13:55] VITALS: BMI 51.0
[~2017-03-14] VITALS: Ht 165.1 cm; Wt 140.9 kg
[~2017-03-14] MED LIST changes: -ERGO1CAP41 PO; +ERGO500011 PO; +GLC500 PO; +LANS15CA6 PO; +LIDOCAINE HCL 2% 2 ML VIAL (20MG/ML) ONE; +LOSA100T65 PO; -METF-384 PO; +MIDAZOLAM HCL 1 MG/ML 2ML VIAL ONE; +PROPOFOL IV EMULSION 10 MG/ML 20 ML VIAL IV ONE; +SODIUM CHLORIDE 0.9% 500ML 500 ML IV ONE
[2017-03-14 11:07] VITALS: Ht 165.1 cm; Wt 140.9 kg
--- NOTE | 2017-03-14 11:53 | Endo History and Physical ---
History & Physical Date of Service: Mar 14, 2017. Chief Complaint: ANEMIA Referring Physician: DR. MERINO History of Present Illness 61 yo CF who presents for Colonoscopy secondary to anemia. Past Medical History Arthritis, Anxiety, Reflux, Hypertension, CVA/TIA, Depression Past Surgical History Hx Cardiac Surgery: No Hx Internal Defibrillator: No Hx Pacemaker: No Hx Abdominal Surgery: Yes (APPY) Hx of Implantable Prosthesis: No Hx Post-Op Nausea and Vomiting: No Hx Cancer Surgery: No Hx Thoracic Surgery: No Hx Orthopedic: No Hx Urinary Tract Surgery: No Family History None Social History Smoking Status: Never Smoker Hx Substance Use: No Hx Alcohol Use: No Allergies Coded Allergies: Aspirin (Verified Allergy, Unknown, hives, 03/14/17) Penicillins (Verified Allergy, Unknown, hives, 03/14/17) Current Medications Reported Home Medications Medications Dose Route/Sig Max Daily Dose Days Date Category Dose Instructions Zofran (Ondansetron HCl) 4 Mg Tab 4 Mg PO Q6H PRN 03/07/17 Reported Prevacid (Lansoprazole) 15 Mg Capcr 15 Mg PO QAM 03/07/17 Reported Cozaar (Losartan Potassium) 100 Mg Tab 100 Mg PO QAM 03/07/17 Reported Metformin HCl 500 Mg Tab 1 Tab PO BID 03/07/17 Reported Ventolin Hfa (Albuterol) 200 Puffs/76075 Mcg Aers 2 Puffs INH Q4 PRN 09/27/16 Reported Vitamin D 20635 Unit (Ergocalciferol) 50,000 Unit Cap 50,000 Units PO WK 09/27/16 Reported MONDAYS Wellbutrin Xl (Bupropion Hcl) 150 Mg Tab 150 Mg PO QAM 09/27/16 Reported Atorvastatin Calcium (Atorvastatin) 20 Mg Tab 20 Mg PO QPM 09/27/16 Reported Normodyne (Labetalol Hcl) 300 Mg Tab 300 Mg PO QAM 09/27/16 Reported Januvia (Sitagliptin) 100 Mg Tab 100 Mg PO QAM 09/27/16 Reported Methotrexate 2.5 Mg Tab 20 Mg PO WK 09/27/16 Reported EIGHT 2.5 MG TABLETS EVERY TUESDAY Folic Acid 1 Mg Tab 1 Mg PO QAM 09/27/16 Reported Fluticasone Propionate 120 Sprays/6000 Mcg Inha 1 [place] NA DAILY 04/16/14 Reported Norvasc (Amlodipine Besylate) 10 Mg Tab 10 Mg PO QAM 04/16/14 Reported Vital Signs Weight (Kilograms): 140.91 Height (Feet): 5 Height (Inches): 5 Date Time Temp Pulse Resp B/P (MAP) Pulse Ox O2 Delivery O2 Flow Rate FiO2 03/14/17 11:25 36.7 83 18 153/80 (104) 94 Room Air Physical Exam General Appearance: WD/WN, no apparent distress Respiratory/Chest: Auscultation: breath sounds normal Cardiovascular: Heart Auscultation: RRR Abdomen: Bowel Sounds: normal Inspection & Palpation: soft, non-distended, no tenderness, guarding & rebound Assessment and Plan Assessment: 61 yo CF who presents for Colonoscopy secondary to anemia. Plan: Proceed with Colonoscopy.
--- NOTE | 2017-03-14 13:47 | Discharge Instructions ---
Endoscopy Patient Instructions Date / Procedure(s) Performed Mar 14, 2017. Colonoscopy Allergy Information Coded Allergies: Aspirin (Verified Allergy, Unknown, hives, 03/14/17) Penicillins (Verified Allergy, Unknown, hives, 03/14/17) Discharge Date / Findings Mar 14, 2017. Colon polyps Internal hemorrhoids Medication Instructions Stopped Medication(s): ONLY TOOK BP MEDICATIONS OK to resume all medications today as prescribed Reported Home Medications Medications Dose Route/Sig Max Daily Dose Days Date Category Dose Instructions Zofran (Ondansetron HCl) 4 Mg Tab 4 Mg PO Q6H PRN 03/07/17 Reported Prevacid (Lansoprazole) 15 Mg Capcr 15 Mg PO QAM 03/07/17 Reported Cozaar (Losartan Potassium) 100 Mg Tab 100 Mg PO QAM 03/07/17 Reported Metformin HCl 500 Mg Tab 1 Tab PO BID 03/07/17 Reported Ventolin Hfa (Albuterol) 200 Puffs/91307 Mcg Aers 2 Puffs INH Q4 PRN 09/27/16 Reported Vitamin D 12201 Unit (Ergocalciferol) 50,000 Unit Cap 50,000 Units PO WK 09/27/16 Reported MONDAYS Wellbutrin Xl (Bupropion Hcl) 150 Mg Tab 150 Mg PO QAM 09/27/16 Reported Atorvastatin Calcium (Atorvastatin) 20 Mg Tab 20 Mg PO QPM 09/27/16 Reported Normodyne (Labetalol Hcl) 300 Mg Tab 300 Mg PO QAM 09/27/16 Reported Januvia (Sitagliptin) 100 Mg Tab 100 Mg PO QAM 09/27/16 Reported Methotrexate 2.5 Mg Tab 20 Mg PO WK 09/27/16 Reported EIGHT 2.5 MG TABLETS EVERY TUESDAY Folic Acid 1 Mg Tab 1 Mg PO QAM 09/27/16 Reported Fluticasone Propionate 120 Sprays/6000 Mcg Inha 1 [place] NA DAILY 04/16/14 Reported Norvasc (Amlodipine Besylate) 10 Mg Tab 10 Mg PO QAM 04/16/14 Reported Provider Instructions Activity Restrictions - No exercising or heavy lifting for 24 hours. - Do not drink alcohol the day of the procedure. - Do not drive a car or operate machinery until the day after the procedure. - Do not make any important decisions or sign important papers in 24 hours after the procedure. Following Day: - Return to full activity which may include returning to work/school. Diet Start your diet with liquids and light foods (jello, soup, juice, toast). Then eat your usual diet if not nauseated. Treatment For Common After Affects For mild abdominal pain, bloating, or excessive gas: - Rest - Eat lightly - Lie on right side Recommend Repeat colonoscopy in 1 year with General anesthesia Follow-Up Information Follow-up with DR. MERINO as scheduled Anesthesia Information What You Should Know You have had a procedure that required some medicine to reduce anxiety and discomfort. This treatment is called moderate sedation. After receiving the treatment, you may be sleepy, but you will be able to breathe on your own. The effects of the treatment may last for several hours. Follow these instructions along with Activity/Diet recommendations noted above: * Do NOT do anything where dizziness or clumsiness would be dangerous. * Rest quietly at home today, then you can be up and about tomorrow. * Have a responsible person stay with you the rest of today. * You may have had an I.V. today. If so, you may take the dressing off later today. Recommendations Call your doctor if: * Trouble breathing * Continuous vomiting for more than 24 hours * Temperature above 101 degrees * Severe abdominal pain or bloating * Pain not relieved by pain medicine ordered * There is increased drainage or redness from any incision * A large amount of rectal bleeding greater than 2-3 tablespoons. (If you had a polyp/s removed or have hemorrhoids, a small amount of blood - from the rectum is to be expected.) * You have any unanswered questions or concerns. IN THE EVENT OF A SERIOUS EMERGENCY, GO TO THE NEAREST EMERGENCY ROOM Your discharge instructions were prepared by provider Osmin Mondragon. Patient Instructions Signature Page Rose Blunt Patient (or Guardian) Signature/Date: I have read and understand the instructions given to me by my caregivers. Caregiver/RN/Doctor Signature/Date: The above-named patient and/or guardian has received patient instructions on this date. + Original Patient Signature Page (only) stays with chart. Please make copy for patient.
[2017-03-14 14:14] VITALS: BP 167/80; PULSE 73; O2SAT 99
--- NOTE | 2017-03-14 14:23 | Anesthesiology Progress Note ---
Anesthesia Post Op Note Date & Time Mar 14, 2017 at 14:22 Vital Signs Pain Intensity: 0 Vital Signs Past 12 Hours Date Time Temp Pulse Resp B/P (MAP) Pulse Ox O2 Delivery O2 Flow Rate FiO2 03/14/17 14:14 73 20 167/80 (109) 99 Room Air 03/14/17 13:59 79 20 145/72 (96) 96 Room Air 03/14/17 13:44 92 20 112/71 (85) 94 Room Air 03/14/17 11:25 36.7 83 18 153/80 (104) 94 Room Air Notes Mental Status: alert / awake / arousable, participated in evaluation Pt Amnestic to Procedure: Yes Nausea / Vomiting: adequately controlled Pain: adequately controlled Airway Patency, RR, SpO2: stable & adequate BP & HR: stable & adequate Hydration State: stable & adequate Anesthetic Complications: no major complications apparent
--- NOTE | 2017-03-14 14:25 | GI REPORT ---
Procedure Date: 03/14/2017 1:11 PM Procedure: Colonoscopy Indications: Iron deficiency anemia Medicines: Monitored Anesthesia Care Complications: No immediate complications. Estimated Blood Loss: Estimated blood loss: none. Procedure: Pre-Anesthesia Assessment: - Prior to the procedure, a History and Physical was performed, and patient medications and allergies were reviewed. The patient's tolerance of previous anesthesia was also reviewed. The risks and benefits of the procedure and the sedation options and risks were discussed with the patient. All questions were answered, and informed consent was obtained. Prior Anticoagulants: The patient has taken no previous anticoagulant or antiplatelet agents. ASA Grade Assessment: III - A patient with severe systemic disease. After reviewing the risks and benefits, the patient was deemed in satisfactory condition to undergo the procedure. After I obtained informed consent, the scope was passed under direct vision. Throughout the procedure, the patient's blood pressure, pulse, and oxygen saturations were monitored continuously. The scope was introduced through the anus and advanced to the terminal ileum. The colonoscopy was performed with moderate difficulty due to poor bowel prep, a tortuous colon, the patient's body habitus and the patient's oxygen desaturation. Successful completion of the procedure was aided by using manual pressure. The patient tolerated the procedure. The quality of the bowel preparation was fair. The terminal ileum, ileocecal valve, appendiceal orifice, and rectum were photographed. Findings: A 5 mm polyp was found in the ascending colon. The polyp was sessile. The polyp was removed with a hot snare. Resection and retrieval were complete. A 20 mm polyp was found in the ascending colon. The polyp was semi-pedunculated. The polyp was removed with a hot snare. Resection and retrieval were complete. To prevent bleeding after the polypectomy, two hemostatic clips were successfully placed (MR conditional). There was no bleeding at the end of the procedure. A 20 mm polyp was found in the descending colon. The polyp was pedunculated. The polyp was removed with a hot snare. Resection and retrieval were complete. To prevent bleeding after the polypectomy, one hemostatic clip was successfully placed (MR conditional). There was no bleeding at the end of the procedure. Non-bleeding internal hemorrhoids were found during retroflexion. The hemorrhoids were small. Impression: - One 5 mm polyp in the ascending colon, removed with a hot snare. Resected and retrieved. - One 20 mm polyp in the ascending colon, removed with a hot snare. Resected and retrieved. Clips (MR conditional) were placed. - One 20 mm polyp in the descending colon, removed with a hot snare. Resected and retrieved. Clip (MR conditional) was placed. - Non-bleeding internal hemorrhoids. Recommendation: - Resume previous diet. - Continue present medications. - Repeat colonoscopy in 1 year because the bowel preparation was poor and for surveillance of multiple polyps. Due to difficulty sedating patient, I would recommend general anesthesia for patient's sedation needs. - Return to primary care physician as previously scheduled. Osmin Mondragon, DO 03/14/2017 2:25:22 PM This report has been signed electronically. Note Initiated On: 03/14/2017 1:11 PM I attest to the content of the Intraoperative Record and orders documented therein, exceptions below
== END | disposition home or self-care (01) ==
LOC: C.GI 11:03
PROVIDERS: ATTEND Internal Medicine
DX: D50.9 Iron deficiency anemia, unspecified (principal); D12.2 Benign neoplasm of ascending colon; D12.4 Benign neoplasm of descending colon; K64.8 Other hemorrhoids; I10 Essential (primary) hypertension; F32.9 Major depressive disorder, single episode, unspecified; F41.9 Anxiety disorder, unspecified; Z86.73 Personal history of transient ischemic attack (TIA), and cerebral infarction without residual deficits; Z90.89 Acquired absence of other organs; Z79.82 Long term (current) use of aspirin; Z88.0 Allergy status to penicillin; E66.01 Morbid (severe) obesity due to excess calories; Z68.43 Body mass index [BMI] 50.0-59.9, adult

== ENCOUNTER → 2017-05-10 | Outpatient (CLI) | payer OTHER ==
[~2017-05-10] MED LIST changes: -LIDOCAINE HCL 2% 2 ML VIAL (20MG/ML) ONE; -LPT/20 PO; +LPT20 PO; -MIDAZOLAM HCL 1 MG/ML 2ML VIAL ONE; -PROPOFOL IV EMULSION 10 MG/ML 20 ML VIAL IV ONE; -SODIUM CHLORIDE 0.9% 500ML 500 ML IV ONE
[2017-05-10 13:20] LABS: BASO % 0.4 %; BASO ABS # 0.04 K/uL (0-0.2); EOS % 1.8 %; EOS ABS # 0.18 K/uL (0-0.5); HEMATOCRIT 38.7 % (37-47); HEMOGLOBIN 12.2 g/dL (12.0-16.0); IG# 0.02 K/uL (0.00-0.02); LYMPH % 18.4 %; LYMPH ABS # 1.79 K/uL (1.2-3.4); MEAN CELL VOLUME 92.4 fL (80-100); MEAN CORPUSCULAR HEMOGLOBIN 29.1 pg (25-34); MEAN CORPUSCULAR HGB CONC 31.5 g/dl (32-36); MONO % 5.9 %; MONO ABS # 0.58 K/uL (0.11-0.59); NEUT % 73.3 %; NEUT ABS # 7.14 K/uL (1.4-6.5); PLATELET COUNT 382 K/uL (130-400); RED CELL DISTRIBUTION WIDTH CV 17.8 % (11.5-14.5); RED CELL DISTRIBUTION WIDTH SD 59.7 fL (36.4-46.3); WHITE BLOOD COUNT 9.75 K/uL (4.8-10.8)
== END | disposition home or self-care (01) ==
LOC: C.LAB1850 12:23
PROVIDERS: ATTEND Internal Medicine Hematology & Oncology
DX: D64.9 Anemia, unspecified (principal)

== ENCOUNTER 2019-05-09 11:05 | Inpatient (IN) ==
--- NOTE | 2019-05-09 12:28 | XRay Report ---
XR chest 1V portable CLINICAL HISTORY: Atypical chest pain COMPARISON STUDY: 05/01/2018 FINDINGS: The heart remains enlarged. There is no failure. There is no focal pulmonary consolidation. There are no pleural effusions.[ IMPRESSION: Stable cardiomegaly. No active disease in the chest. ACT 112: Negative or not required by law. Electronically signed by: Saul Tim M.D. 05/09/2019 12:26 PM
[2019-05-09 12:29] LABS: Basophils # (auto) 0.04 K/uL (0-0.2); Basophils % (auto) 0.5 %; Eosinophils # (auto) 0.19 K/uL (0-0.5); Eosinophils % (auto) 2.5 %; Hemoglobin 8.5 g/dL (12.0-16.0); Immature Granulocytes # (auto) 0.02 K/uL (0.00-0.02); Immature Granulocytes % (auto) 0.3 %; Lymphocytes # (auto) 1.85 K/uL (1.2-3.4); Mean Corpuscular Hemoglobin 25.8 pg (25-34); Mean Corpuscular Hgb Conc 29.3 g/dL (32-36); Mean Corpuscular Volume 87.9 fL (80-100); Mean Platelet Volume 9.1 fL (7.4-10.4); Monocytes # (auto) 0.69 K/uL (0.11-0.59); Neutrophils # (auto) 4.91 K/uL (1.4-6.5); Neutrophils % (auto) 63.7 %; Platelet Count 387 K/uL (130-400); RDW Coefficient of Variation 21.1 % (11.5-14.5); RDW Standard Deviation 67.1 fL (36.4-46.3)
[2019-05-09 12:38] LABS: Alanine Aminotransferase 25 U/L (12-78); Albumin Level 3.6 gm/dl (3.4-5.0); Aspartate Aminotransferase 22 U/L (15-37); BUN Creatinine Ratio 15.5 (10-20); Blood Urea Nitrogen 12 mg/dl (7-18); Calcium 10.3 mg/dl (8.5-10.1); Carbon Dioxide 23 mmol/L (21-32); Chloride 105 mmol/L (98-107); Creatinine Clr Calc Pharmacy 96.9 ml/min; Est GFR (African American) 92.5; Est GFR (Non-African American) 79.8; Glucose 130 mg/dl (70-99); Potassium 4.3 mmol/L (3.5-5.1); Sodium 137 mmol/L (136-145)
[2019-05-09 12:43] LABS: Albumin Globulin Ratio 1.1 (0.9-2); Alkaline Phosphatase 128 U/L (45-117); Bilirubin,Total 0.3 mg/dl (0.2-1); Globulin 3.4 gm/dl (2.5-4.0); Troponin I < 0.015 ng/ml (0-0.045)
[2019-05-09 12:54] LABS: Anisocytosis Present; Hypochromasia Present; Ovalocytes 1+
[2019-05-09 13:52] LABS: INR 1.1 (0.9-1.1); Partial Thromboplastin Ratio 0.9; Partial Thromboplastin Time 23.2 Seconds (21.0-31.0); Prothrombin Time 11.4 Seconds (9.0-12.0)
[2019-05-09] MEDS ORDERED: FAMOTIDINE 20MG IV PUSH 20 MG/5 ML SYR IV STA (13:58)
--- NOTE | 2019-05-09 14:09 | History & Physical Report ---
Date of Service May 09, 2019 Assessment & Plan (1) GI bleed: -Admit to [facility] -GI consulted, Dr. Mondragon as she has previously followed with him for colonoscopy 1 year ago. -keep patient n.p.o. for now until discussion with GI regarding possible endoscopy later today vs. tomorrow -IV famotidine 20 mg IV twice daily -Holding home lansoprazole -CATIE performed in the ER was heme positive, -Hgb 8.5 at time of admission, this is stable in comparison to labs from yesterday, will recheck H&H at 1999, recheck earlier than AM labs based on results -Type and screen completed, blood consent to be obtained by attending. -Transfuse if hemoglobin drops <7 no current needs for transfusion, VSS (2) Anemia: - 2/2 to GIB vs methotrexate use? 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 including amlodipine 10 mg daily, labetalol 300 mg daily, losartan 50 mg daily (6) Hyperlipidemia: -Continue atorvastatin 20 mg daily (7) Interstitial lung disease: -Noted, no increased worsening shortness of breath or other respiratory distress -Continue fluticasone propionate twice daily (8) DM2 (diabetes mellitus, type 2): -Holding metformin-ISS with Accu-Chene ACHS -Last A1c = 6.0 on 04/17/2019 -Continue Ozempic, next injection due tomorrow, administered weekly (9) Cerebral vascular disease: -History of hemorrhagic stroke in 2009, not on any anticoagulation secondary to such -Has residual deficit with left sided hearing loss and right hand difficulty with fine movements such as signature -BP well controlled (10) Psoriasis: -Follows with [facility] on [address] , [place] -Has been on methotrexate x4 years, takes 20 mg weekly on Saturdays, last dose was 05/06/2019 -Patient recently was found to have elevated LFTs, alk phos noted to be 128 on admission, possibly as a result of methotrexate use -Methotrexate may also be cause of anemia as above as patient denies increased NSAID use, alcohol, diet change, etc. 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 (11) Depression: (12) Generalized anxiety disorder: -Continue Wellbutrin (13) GERD (gastroesophageal reflux disease): -Protonix inhibitor as above (14) Hyperparathyroidism, primary: -Stable (15) Morbid obesity: -BMI 47 -Diet and exercise to be encouraged upon discharge, HH/DM diet once allowed per GI recommendations (16) Osteoporosis: -Continue vitamin D supplementation History of Present Illness Primary Care Provider: Rosy Cristobal MD This is a 64 yo F with PMhx of HTN, HLD, mild tricuspid regurg, mild aortic regurg, morbid obesity, interstitial lung disease, DM II, anemia, psoriatic arthritis, hyperparathyroidism, GERD, depression, anxiety, psoriasis, osteoporosis who present with acute onset of weakness and was found to be anemic with Hgb of 8.5 on CBC and heme positive on CATIE. The patient was evaluated last Tuesday at her PCPs office for routine exam. At that point in time she mentioned that she had increased weakness, and was instructed to have a CBC drawn, which she had done on 05/07/2019. This resulted yesterday coming back with a hemoglobin of 8.5, her PCPs office called her with the results and instructed her to come to the ER today. Patient notes that she has had increased weakness, fatigue, dizziness which has been worsening x2 weeks. Patient reports she has been eating as she typically would, drinking normally, no alcohol intake, no NSAID use. Last bowel movement was this morning, soft, formed, brown in color, denies hematochezia, BRBPR, no history of hemorrhoids. She had a colonoscopy last year which she reports was a poor prep but otherwise no abnormalities. She has had afew fainting spells where she used her walker to catch herself before any collapse, the first episode was ~3 days ago. She denies falling, LOC injury to the head or other trauma. Last time she ate was breakfast in late morning , and currently NPO. Allergies Allergy/AdvReac Type Severity Reaction Status Date / Time aspirin Allergy Unknown hives Verified 05/09/19 12:28 Penicillins Allergy Unknown hives Verified 05/09/19 12:28 Home Medications Home Medications Medication Instructions Recorded Confirmed Type acetaminophen [Tylenol] 650 mg PO QID PRN 05/01/18 05/09/19 History calcium carbonate [Calcium 600] 600 mg PO DAILY 05/01/18 05/09/19 History cholecalciferol (vitamin D3) 2,000 unit PO DAILY 05/01/18 05/09/19 History [Vitamin D3] ergocalciferol (vitamin D2) 50,000 unit PO WK 05/01/18 05/09/19 History ferrous sulfate 325 mg PO DAILY 05/01/18 05/09/19 History fluticasone propionate 1 spray INTRANASAL BID 05/01/18 05/09/19 History folic acid 1 mg PO DAILY 05/01/18 05/09/19 History lansoprazole 30 mg PO DAILY 05/01/18 05/09/19 History methotrexate sodium 2.5 mg PO DIRECTED 05/01/18 05/09/19 History ondansetron HCl [Zofran] 4 - 8 mg PO Q8H PRN 05/01/18 05/09/19 History semaglutide 0.5 mg SQ WK #4.5 ml 04/03/19 05/09/19 Rx losartan 50 mg tablet 50 mg PO DAILY #90 tab 04/05/19 05/09/19 Rx amlodipine 10 mg tablet 10 mg PO DAILY #90 tab 04/13/19 05/09/19 Rx atorvastatin 20 mg tablet 20 mg PO DAILY #90 tab 04/13/19 05/09/19 Rx bupropion HCl 150 mg 24 hr tablet, 150 mg PO DAILY #90 tab 04/13/19 05/09/19 Rx extended release labetalol 300 mg tablet 300 mg PO DAILY #90 tab 04/13/19 05/09/19 Rx metformin 500 mg tablet 500 mg PO Q12H #180 tab 04/13/19 05/09/19 Rx Past Med/Surg History Medical History Anemia (Acute) Cerebral vascular disease (Acute) Chronic otitis externa of both ears (Acute) CVA (cerebral vascular accident) (Resolved) Depression (Acute) DM2 (diabetes mellitus, type 2) (Acute) Generalized anxiety disorder (Acute) GERD (gastroesophageal reflux disease) (Acute) Hearing loss in left ear (Acute) Hypercalcemia (Inactive) Hyperparathyroidism, primary (Acute) Hypertension (Acute) Internal hemorrhoids (Inactive) Interstitial lung disease (Acute) Mild aortic regurgitation (Acute) Mild tricuspid regurgitation (Acute) Morbid obesity (Acute) Myopathy (Acute) Osteoporosis (Acute) Psoriasis (Acute) Psoriatic arthritis (Acute) Pulmonary nodules (Acute) Vitamin D deficiency (Inactive) Family History Other Family history non-contributory Social History Preferred Language: Hungarian Communication Ability: Effective Beliefs That Will Affect Care: None Current Living Situation: Alone Other Information That Helps Us Care for You: No Feels Safe at Home: Yes Safety Concerns: Feels Safe At This Time Smoking Status: Never smoker Hx Alcohol Use: No Hx Substance Use: No Review of Systems Review of Systems: Constitutional: No fever, sweats or chills, + generalized weakness, fatigue, dizziness occasionally Eyes: No diplopia, no worsening or blurred vision ENT: normal hearing, no trouble swallowing Respiratory: No cough, sputum, dyspnea at rest, no increased shortness of breath with exertion Cardiovascular: No chest pain, tightness or palpitations Abdomen: As per HPI, no pain, nausea, vomiting, diarrhea or constipation Musculoskeletal: No joint pain, calf pain, swelling Neurologic: + Generalized weakness, no numbness/tingling, or balance problems Psychiatric: + Anxiety and depression well-controlled on Wellbutrin Skin: + Psoriasis well-controlled on methotrexate Physical Exam Physical Exam: General: awake, alert, no apparent distress, + morbidly obese with BMI of 47 Head: Normocephalic, atraumatic ENT: PERRL, EOMI, + conjunctival pallor, no pharyngeal exudate or petechiae, mucous membranes moist Chest: Clear to auscultation, on room air, no adventitious breath sounds Cardiac: Regular rate and rhythm, + faint ATUL, no JVD, normal peripheral pulses, good capillary refill Abdominal: NABS x 4 quadrants, soft, nondistended nontender to palpation, no rebound, guarding or tenderness Extremities: Normal inspection, no peripheral edema or erythema, calfs nontender to palpation Psych: Normal mood and affect Neuro: AAO x 3, strength intact bilaterally and related 5/5, no motor deficits, speech is clear, no peripheral sensory deficits Skin: + psoriatic plaque over the left olecranon and right olecranon, left worse than right, + pallor, otherwise no rash or erythema Constitutional: WD/WN, vitals as above Eyes: normal visual roque by confrontation and + anicteric sclerae Neck: normal visual inspection and trachea midline Respiratory: normal respiratory effort, lungs clear to auscultation Cardiovascular: Rate/Rhythm: regular rate and regular rhythm Gastrointestinal (Abdomen): Inspection/Auscultation: abdomen not distended Percussion/Palpation: abdomen soft; abdomen nontender Musculoskeletal: Head/Neck/Chest: normocephalic and head atraumatic Neg for peripheral LE edema, + pedal pulses Skin: + pallor warm and dry Neurologic: awake; not confused Speech / Cognition: normal speech Psychiatric: A+Ox3, euthymic affect Lymphatic: Exam as done by Cecily Flores DO Results & Data Vital Signs (Past 12 Hours) Vital Signs Temp Pulse Resp BP Pulse Ox 05/09/19 13:31 73 17 05/09/19 13:29 79 19 124/65 98 05/09/19 11:13 36.4 C L 88 20 158/82 H 95 Diagnostic Findings XR chest 1V portable CLINICAL HISTORY: Atypical chest pain COMPARISON STUDY: 05/01/2018 FINDINGS: The heart remains enlarged. There is no failure. There is no focal pulmonary consolidation. There are no pleural effusions.[ IMPRESSION: Stable cardiomegaly. No active disease in the chest. ACT 112: Negative or not required by law. Electronically signed by: Saul Tim M.D. 05/09/2019 12:26 PM ECG Additional Comments: 09-MAY-2019 12:00:31 [facility]-EDSTAT ROUTINE RETRIEVAL Sinus rhythm with 1st degree A-V block Voltage criteria for left ventricular hypertrophy Abnormal ECG When compared with ECG of 01-MAY-2018 02:23, No significant change was found 25mm/s 10mm/mV 150Hz 9.0.9 12SL 241 DESMOND: 11 Unconfirmed Vent. rate 84 BPM UT interval 226 ms QRS duration 94 ms QT/QTc 348/411 ms P-R-T axes -2 -21 4 Code Status & VTE Plan Code Status DNR-discussed with the patient at bedside Supervising Physician Co-Signing Physician Notes Pt seen and examined by me. Denies chest pain. Ongoing HARPER. States she cannot go more than about 5 steps without taking a break. No gross blood in stool. No bruising or other bleeding. Tolerating PO without issue. Hx of GIB with NSAID use years ago. Has not been using NSAIDs Agree with HPI/ROS as noted by PA See above for my exam in PE section Agree with plan as outlined above Hb stable at 8.5, same as labs yesterday GI c/s pending Heme + in ED PG Care Time/CCT Total # of Minutes Spent Total Time Spent with Patient: Total time spent is greater than 50% in coordination of care (as documented) at patient's floor/unit and/or counseling patient: Coding Level of Care Code 28073 Initial Inpt Care Lvl 3 Diagnoses GI bleed K92.2 Anemia D64.9 Mild aortic regurgitation I35.1 Mild tricuspid regurgitation I07.1 Hypertension I10 Hyperlipidemia E78.5 Interstitial lung disease J84.9 DM2 (diabetes mellitus, type 2) E11.9 Cerebral vascular disease I67.9 Psoriasis L40.9 Depression F32.9 Generalized anxiety disorder F41.1 GERD (gastroesophageal reflux disease) K21.9 Hyperparathyroidism, primary E21.0 Morbid obesity E66.01 Osteoporosis M81.0
--- NOTE | 2019-05-09 14:25 | Emergency Department Note ---
Entered by Becki Lopez acting as a scribe for History of Present Illness General Chief complaint: Referred by Doctor Stated complaint: FAINTING, DIZZINESS Time Seen by Provider: 05/09/19 13:49 Source: patient History of Present Illness Onset (ago): week(s) 2 Location: head Pain Consistency: + other (persistent) Maximum Pain Intensity: 0 Quality: + other (weakness) Relieved By: + rest (sitting) Exacerbated By: + movement (walking) Associated symptoms: + denies other symptoms (chest pain, shortness of breath, nausea, vomiting, changes in bowel movements, or black/bloody stools) and + other (difficulty walking, weakness/tingling in legs, tingling in arms, near- syncope (x2)) The patient is a 64 year old female that is presenting to the Emergency Room with complaints of persistent weakness that started 2 weeks ago. The patient r eports that she feels very weak when walking and is unable to walk more than a few feet without needing to sit down. She states that her legs start to feel rubbery and tingly when she is walking. She notes that her arms start to feel tingly as well. She states that she then starts to feel faint. She reports that she nearly fainted two times but was able to catch herself prior to falling. The patient states that her symptoms resolve with sitting. She notes that she uses a walker at baseline. She denies any chest pain, shortness of breath, nausea, vomiting, changes in bowel movements, or black/bloody stools. She notes that her last bowel movement was yesterday and that it was normal. The patient reports that she has been seen by her PCP for her symptoms and completed blood work as well as an EKG. She states that her lab reports indicated anemia, and so she was referred to the ED today. The patient notes that she has a history of anemia and has had to receive transfusions in the past. She reports that she had a colonoscopy completed during a past episode without any acute findings at that time. Home Medications Home Medications Medication Instructions Recorded Confirmed Type acetaminophen [Tylenol] 650 mg PO QID PRN 05/01/18 05/09/19 History calcium carbonate [Calcium 600] 600 mg PO DAILY 05/01/18 05/09/19 History cholecalciferol (vitamin D3) 2,000 unit PO DAILY 05/01/18 05/09/19 History [Vitamin D3] ergocalciferol (vitamin D2) 50,000 unit PO WK 05/01/18 05/09/19 History ferrous sulfate 325 mg PO DAILY 05/01/18 05/09/19 History fluticasone propionate 1 spray INTRANASAL BID 05/01/18 05/09/19 History folic acid 1 mg PO DAILY 05/01/18 05/09/19 History lansoprazole 30 mg PO DAILY 05/01/18 05/09/19 History methotrexate sodium 2.5 mg PO DIRECTED 05/01/18 05/09/19 History ondansetron HCl [Zofran] 4 - 8 mg PO Q8H PRN 05/01/18 05/09/19 History semaglutide 0.5 mg SQ WK #4.5 ml 04/03/19 05/09/19 Rx losartan 50 mg tablet 50 mg PO DAILY #90 tab 04/05/19 05/09/19 Rx amlodipine 10 mg tablet 10 mg PO DAILY #90 tab 04/13/19 05/09/19 Rx atorvastatin 20 mg tablet 20 mg PO DAILY #90 tab 04/13/19 05/09/19 Rx bupropion HCl 150 mg 24 hr tablet, 150 mg PO DAILY #90 tab 04/13/19 05/09/19 Rx extended release labetalol 300 mg tablet 300 mg PO DAILY #90 tab 04/13/19 05/09/19 Rx metformin 500 mg tablet 500 mg PO Q12H #180 tab 04/13/19 05/09/19 Rx Allergies Allergy/AdvReac Type Severity Reaction Status Date / Time aspirin Allergy Unknown hives Verified 05/09/19 12:28 Penicillins Allergy Unknown hives Verified 05/09/19 12:28 Past Med/Surg History Medical History Anemia (Acute) Cerebral vascular disease (Acute) Chronic otitis externa of both ears (Acute) CVA (cerebral vascular accident) (Resolved) Depression (Acute) DM2 (diabetes mellitus, type 2) (Acute) Generalized anxiety disorder (Acute) GERD (gastroesophageal reflux disease) (Acute) Hearing loss in left ear (Acute) Hypercalcemia (Inactive) Hyperparathyroidism, primary (Acute) Hypertension (Acute) Internal hemorrhoids (Inactive) Interstitial lung disease (Acute) Mild aortic regurgitation (Acute) Mild tricuspid regurgitation (Acute) Morbid obesity (Acute) Myopathy (Acute) Osteoporosis (Acute) Psoriasis (Acute) Psoriatic arthritis (Acute) Pulmonary nodules (Acute) Vitamin D deficiency (Inactive) Family History Other Family history non-contributory Social History Preferred Language: [place] Communication Ability: Effective Beliefs That Will Affect Care: None Current Living Situation: Alone Other Information That Helps Us Care for You: No Feels Safe at Home: Yes Safety Concerns: Feels Safe At This Time Smoking Status: Never smoker Hx Alcohol Use: No Hx Substance Use: No Review of Systems See HPI for pertinent positives & negatives. and A total of 10 systems reviewed and were otherwise negative Physical Exam Vital Signs Vital Signs - 24 hr 05/09/19 11:13 05/09/19 12:00 05/09/19 13:29 Temperature 36.4 C L Temperature Source Oral Pulse Rate 88 79 Pulse Rate from SpO2 Sensor Respiratory Rate 20 19 Respiratory Effort / Characteristics Non-Labored Respiratory Depth Normal Blood Pressure 158/82 H 124/65 Blood Pressure Mean 107 85 Blood Pressure Position Sitting Pulse Oximetry 95 98 Oxygen Delivery Method Room Air Room Air Room Air Sepsis Recent Fever Within 48 Hours No Sepsis New/Unexplained Change in Mental Status No Sepsis Action Taken by Nursing No Action Required 05/09/19 13:31 05/09/19 14:16 05/09/19 14:31 Temperature Temperature Source Pulse Rate 73 80 82 Pulse Rate from SpO2 Sensor Respiratory Rate 17 16 17 Respiratory Effort / Characteristics Respiratory Depth Blood Pressure Blood Pressure Mean Blood Pressure Position Pulse Oximetry Oxygen Delivery Method Sepsis Recent Fever Within 48 Hours Sepsis New/Unexplained Change in Mental Status Sepsis Action Taken by Nursing 05/09/19 15:03 05/09/19 15:25 05/09/19 15:26 Temperature Temperature Source Pulse Rate 88 81 83 Pulse Rate from SpO2 Sensor 81 82 Respiratory Rate 21 23 15 Respiratory Effort / Characteristics Respiratory Depth Blood Pressure 133/74 Blood Pressure Mean 95 Blood Pressure Position Pulse Oximetry 97 98 Oxygen Delivery Method Sepsis Recent Fever Within 48 Hours Sepsis New/Unexplained Change in Mental Status Sepsis Action Taken by Nursing 05/09/19 15:30 05/09/19 15:31 Temperature Temperature Source Pulse Rate Pulse Rate from SpO2 Sensor 79 81 Respiratory Rate Respiratory Effort / Characteristics Respiratory Depth Blood Pressure Blood Pressure Mean Blood Pressure Position Pulse Oximetry 96 97 Oxygen Delivery Method Sepsis Recent Fever Within 48 Hours Sepsis New/Unexplained Change in Mental Status Sepsis Action Taken by Nursing GENERAL: Patient is awake, alert, and in no acute distress.Patient is resting comfortably and showing no signs of anxiety EYES: The conjunctivae are clear. The pupils are round and reactive. EARS, NOSE, MOUTH AND THROAT: The nose is without any evidence of any deformity. Mucous membranes are moist.Tongue is midline NECK: The neck is nontender and supple. RESPIRATORY: Normal respiratory effort is noted. There is no evidence of wheezing rhonchi or rales to auscultation. CARDIOVASCULAR: Regular rate and rhythm noted. There no murmurs rubs or gallops normal S1 normal S2 GASTROINTESTINAL: The abdomen is soft. Bowel sounds are present in all quadrants. Abdomen is nontender. MUSCULOSKELETAL/EXTREMITIES: There is no evidence of gross deformity. Full range of motion is noted in the hips and shoulders. SKIN: Cool, pale and dry skin noted. Pedal edema bilaterally. NEUROLOGIC: Patient is awake alert and oriented x3. Course Course 1352:The patient was evaluated in room C12B. A complete history and physical examination was performed. 1405: I discussed the patient's case with Dr. Flores, [facility], who will evaluate the patient for further management and care. 1415: Upon reevaluation, the patient is resting comfortably. I discussed laboratory and radiographic results with the patient. She verbalized agreement of the treatment plan. The patient will be evaluated for further management and care. Administered Medications Famotidine 20 mg/ Syringe 5 mls @ 2.5 mls/min IV BID JEREMY Stop: 06/08/19 20:59 Last Admin: 05/09/19 20:08 Dose: 2.5 mls/min Documented by: [id number] Insulin Aspart (Novolog Flexpen) 0 units SC ACHS JEREMY Stop: 06/08/19 17:29 Last Admin: 05/09/19 21:09 Dose: Not Given Documented by: [id number] Cosigned by: [id number] Admin: 05/09/19 18:18 Dose: Not Given Documented by: [id number] Cosigned by: [id number] Discontinued Medications Fluticasone Propionate (Flonase) 1 sprays MILLIE BID JEREMY Stop: 06/08/19 20:59 Last Admin: 05/09/19 20:04 Dose: Not Given Documented by: [id number] Famotidine (Pepcid 20mg Iv Push) 20 mg in 5 mls @ 2.5 mls/min IV NOW STA Stop: 05/09/19 13:59 Last Admin: 05/09/19 14:11 Dose: 2.5 mls/min Documented by: [id number] Metformin HCl (Glucophage) 500 mg PO Q12H JEREMY Stop: 06/08/19 16:53 Last Admin: 05/09/19 18:17 Dose: 500 mg Documented by: [id number] Medical Decision Making Differential Diagnosis Differential Diagnosis includes but is not limited to dehydration, stroke, anemia, hypoglycemia, hyponatremia, hypernatremia, urinary tract infection, pneumonia, bronchitis, sepsis, gastroenteritis, additional abdominal pathology, metabolic abnormalities and infections. Medical Records Attestation: I reviewed the patient's medical records. Home Medications Current Medication List: was personally reviewed by me Laboratory Data Attestation: I reviewed the patient's lab results. Result diagrams: 05/09/19 20:00 05/09/19 12:10 Lab Results 05/09/19 05/09/19 05/09/19 Range/Units 12:10 12:10 12:10 WBC 7.70 (4.8-10.8) K/uL RBC 3.30 L (4.2-5.4) M/uL Hgb 8.5 L (12.0-16.0) g/dL Hct 29.0 L (37-47) % MCV 87.9 (80-100) fL MCH 25.8 (25-34) pg MCHC 29.3 L (32-36) g/dL RDW Std Deviation 67.1 H (36.4-46.3) fL RDW Coeff of Anderson 21.1 H (11.5-14.5) % Plt Count 387 (130-400) K/uL MPV 9.1 (7.4-10.4) fL Immature Gran % (Auto) 0.3 % Neut % (Auto) 63.7 % Lymph % (Auto) 24.0 % [place] % (Auto) 9.0 % Eos % (Auto) 2.5 % Baso % (Auto) 0.5 % Immature Gran # (Auto) 0.02 (0.00-0.02) K/uL Neut # (Auto) 4.91 (1.4-6.5) K/uL Lymph # (Auto) 1.85 (1.2-3.4) K/uL [place] # (Auto) 0.69 H (0.11-0.59) K/uL Eos # (Auto) 0.19 (0-0.5) K/uL Baso # (Auto) 0.04 (0-0.2) K/uL Hypochromasia Present Anisocytosis Present Ovalocytes 1+ PT Cancelled INR Cancelled APTT Cancelled PTT Ratio Cancelled Sodium 137 (136-145) mmol/L Potassium 4.3 (3.5-5.1) mmol/L Chloride 105 (98-107) mmol/L Carbon Dioxide 23 (21-32) mmol/L Anion Gap 9.0 (3-11) BUN 12 (7-18) mg/dl Creatinine 0.78 (0.6-1.2) mg/dl Est Cr Clr Drug Dosing 96.9 ml/min Est GFR ( Amer) 92.5 Est GFR (Non-Af Amer) 79.8 BUN/Creatinine Ratio 15.5 (10-20) Glucose 130 H (70-99) mg/dl Calcium 10.3 H (8.5-10.1) mg/dl Total Bilirubin 0.3 (0.2-1) mg/dl AST 22 (15-37) U/L ALT 25 (12-78) U/L Alkaline Phosphatase 128 H (45-117) U/L Troponin I < 0.015 (0-0.045) ng/ml Total Protein 7.0 (6.4-8.2) gm/dl Albumin 3.6 (3.4-5.0) gm/dl Globulin 3.4 (2.5-4.0) gm/dl Albumin/Globulin Ratio 1.1 (0.9-2) Blood Type Antibody Screen 05/09/19 Range/Units 14:05 WBC (4.8-10.8) K/uL RBC (4.2-5.4) M/uL Hgb (12.0-16.0) g/dL Hct (37-47) % MCV (80-100) fL MCH (25-34) pg MCHC (32-36) g/dL RDW Std Deviation (36.4-46.3) fL RDW Coeff of Anderson (11.5-14.5) % Plt Count (130-400) K/uL MPV (7.4-10.4) fL Immature Gran % (Auto) % Neut % (Auto) % Lymph % (Auto) % [place] % (Auto) % Eos % (Auto) % Baso % (Auto) % Immature Gran # (Auto) (0.00-0.02) K/uL Neut # (Auto) (1.4-6.5) K/uL Lymph # (Auto) (1.2-3.4) K/uL [place] # (Auto) (0.11-0.59) K/uL Eos # (Auto) (0-0.5) K/uL Baso # (Auto) (0-0.2) K/uL Hypochromasia Anisocytosis Ovalocytes PT INR APTT PTT Ratio Sodium (136-145) mmol/L Potassium (3.5-5.1) mmol/L Chloride (98-107) mmol/L Carbon Dioxide (21-32) mmol/L Anion Gap (3-11) BUN (7-18) mg/dl Creatinine (0.6-1.2) mg/dl Est Cr Clr Drug Dosing ml/min Est GFR ( Amer) Est GFR (Non-Af Amer) BUN/Creatinine Ratio (10-20) Glucose (70-99) mg/dl Calcium (8.5-10.1) mg/dl Total Bilirubin (0.2-1) mg/dl AST (15-37) U/L ALT (12-78) U/L Alkaline Phosphatase (45-117) U/L Troponin I (0-0.045) ng/ml Total Protein (6.4-8.2) gm/dl Albumin (3.4-5.0) gm/dl Globulin (2.5-4.0) gm/dl Albumin/Globulin Ratio (0.9-2) Blood Type O Negative Antibody Screen NEGATIVE Imaging Data Radiologist's Impression: Radiology results as stated below per my review and the radiologist's interpretation: XR chest 1V portable CLINICAL HISTORY: Atypical chest pain COMPARISON STUDY: 05/01/2018 FINDINGS: The heart remains enlarged. There is no failure. There is no focal pulmonary consolidation. There are no pleural effusions.[ IMPRESSION: Stable cardiomegaly. No active disease in the chest. ACT 112: Negative or not required by law. Electronically signed by: Saul Tim M.D. 05/09/2019 12:26 PM ECG Data Attestation: I personally reviewed and interpreted this ECG as follows: Indication: + weakness Rate (beats per minute): 84 Rhythm: + sinus rhythm ECG Intervals/blocks: + First degree AV block ECG Findings: + LVH (by voltage criteria); no PACs and no PVCs Comparison ECG Date: from (05/01/18) Change: no significant change Blood Pressure Blood Pressure Findings: Elevated blood pressure Blood Pressure Disposition: Referred to patients primary care provider MDM Narrative The patient is a 64-year-old female who presented to the emergency department for an evaluation of generalized weakness. The patient has a been describing exertional weakness. She is been noticing that the symptoms began approximately 2 weeks ago. They continue to worsen. She was seen by her primary care physician yesterday and had laboratory studies drawn. At that time she was found to be anemic. She was advised to come to the emergency department today for further evaluation. The patient was found to have heme positive stool. She has had a similar episode in the past from using NSAIDs but states that she does not use them anymore. Because of the patient's symptomatic anemia I discussed the patient's condition with the on-call [facility] hospitalist group. I ordered a type and screen. The patient is to be evaluated in the emergency department for further management disposition. I discussed the patient's laboratory and radiographic studies with her. Impression & Plan Symptomatic anemia, Weakness, Upper gastrointestinal bleed Discharge Plan Visit Data *Final* Discharge Date/Time: 05/09/19 16:34 Chief Complaint: Referred by Doctor Stated Complaint: FAINTING, DIZZINESS ED Provider: Sage Gutiérrez Discharge Problem: Symptomatic anemia, Weakness, Upper gastrointestinal bleed Patient Disposition: Admitted As Inpatient Discharge Instructions Interventions: ED Discharge Assessment Last Done: 05/09/19 16:34 The scribe's documentation has been prepared under my direction and personally reviewed by me in its entirety. I confirm that the note above accurately reflects all work, treatment, procedures, and medical decision making performed by me.
--- NOTE | 2019-05-09 16:10 | Electrocardiogram Report ---
Test Reason : Blood Pressure : / mmHG Vent. Rate : 084 BPM Atrial Rate : 084 BPM P-R Int : 226 ms QRS Dur : 094 ms QT Int : 348 ms P-R-T Axes : -02 -21 004 degrees QTc Int : 411 ms Sinus rhythm with 1st degree A-V block Voltage criteria for left ventricular hypertrophy Abnormal ECG When compared with ECG of 01-MAY-2018 02:23, No significant change was found Confirmed by Juan Bryan ([id number]) on 05/09/2019 4:10:33 PM Referred By: Confirmed By:Juan Bryan
[2019-05-09] MEDS ORDERED: ONDANSETRON INJ 2 MG/ML 2 ML VIAL IV PRN (16:54)
[2019-05-09] MEDS ORDERED: GLUCAGON FOR INJ 1 MG VIAL SQ PRN (16:54)
[2019-05-09] MEDS ORDERED: GLUCOSE 10 TABS/TUBE PO PRN (16:54)
[2019-05-09] MEDS ORDERED: GLUCOSE 40% GEL 15 GM TUBE PO PRN (16:54)
[2019-05-09] MEDS ORDERED: CARBOHYDRATES FOR HYPOGLYCEMIA PO PRN (16:54)
[2019-05-09] MEDS ORDERED: DEXTROSE 50% 50 ML SYRINGE IV PRN (16:54)
[2019-05-09] MEDS ORDERED: METFORMIN HCL 500 MG TAB PO SCH ×2 (16:54)
[2019-05-09 17:51] LABS: Alanine Aminotransferase 25 U/L (12-78); Albumin Level 3.5 gm/dl (3.4-5.0); Alkaline Phosphatase 125 U/L (45-117); Aspartate Aminotransferase 22 U/L (15-37); Bilirubin Direct < 0.1 mg/dl (0-0.2); Bilirubin,Total 0.3 mg/dl (0.2-1); Total Protein 6.7 gm/dl (6.4-8.2)
[2019-05-09] MEDS: INSULIN ASPART 100 UNITS/ML 3 ML PEN SC SCH ×2 (18:18→21:09)
[2019-05-09] MEDS: FAMOTIDINE 20 MG in SYRINGE 3 ML IV SCH (20:08)
[2019-05-09 20:20] LABS: Hematocrit (blood only) 28.5 % (37-47); Hemoglobin 8.4 g/dL (12.0-16.0)
[2019-05-09] MEDS ORDERED: FLUTICASONE PROPIONATE NA SPR 16 GM BTL NAE SCH (21:00)
[2019-05-09] MEDS: ACETAMINOPHEN 325 MG TAB PO PRN (23:31)
[2019-05-10 07:14] LABS: Hematocrit (blood only) 27.9 % (37-47); Hemoglobin 8.3 g/dL (12.0-16.0); Mean Corpuscular Hgb Conc 29.7 g/dL (32-36); Mean Corpuscular Volume 87.5 fL (80-100); Mean Platelet Volume 9.2 fL (7.4-10.4); Platelet Count 317 K/uL (130-400); RDW Coefficient of Variation 21.4 % (11.5-14.5); RDW Standard Deviation 68.8 fL (36.4-46.3); Red Blood Count 3.19 M/uL (4.2-5.4); White Blood Count 7.51 K/uL (4.8-10.8)
[2019-05-10] MEDS ORDERED: FERROUS SULFATE 325 MG TAB PO SCH (07:30)
[2019-05-10 07:51] LABS: Albumin Level 3.6 gm/dl (3.4-5.0); BUN Creatinine Ratio 16.6 (10-20); Calcium 10.7 mg/dl (8.5-10.1); Creatinine Clr Calc Pharmacy 97.4 ml/min; Est GFR (African American) 93.9; Potassium 4.1 mmol/L (3.5-5.1)
[2019-05-10 07:54] LABS: Albumin Globulin Ratio 1.1 (0.9-2); Bilirubin,Total 0.4 mg/dl (0.2-1); Globulin 3.2 gm/dl (2.5-4.0); Total Protein 6.9 gm/dl (6.4-8.2)
[2019-05-10] MEDS: INSULIN ASPART 100 UNITS/ML 3 ML PEN SC SCH ×4 (08:59→21:11)
[2019-05-10] MEDS ORDERED: CALCIUM 600MG + VIT D 400 IU TAB PO SCH (09:00)
[2019-05-10] MEDS: FAMOTIDINE 20 MG in SYRINGE 3 ML IV SCH ×2 (09:12→21:16)
[2019-05-10] MEDS: LACTATED RINGER'S 1,000 ML IV SCH (11:30)
--- NOTE | 2019-05-10 13:11 | Gastrointestinal Consultation ---
Date of Consultation May 10, 2019 Assessment & Plan (1) Symptomatic anemia: H/H stable without overt GI bleeding (8.3/27.9). Asymptomatic from GI standpoint. -Continue to monitor H/H -Remain NPO for EGD today -Further recommendations regarding potential PPI need and colonoscopy to be determined based on endoscopy results. Thank you for allowing us to participate in the care of this patient. If you should have any further questions or concerns, do not hesitate to contact us at extension [phone] or [phone]. Present on Admission?: Yes Supervising Physician Co-Signing Physician Notes Agree with GERARDO Michaud as above Abd: Soft, NT, ND, +BS Continue current therapy EGD now History of Present Illness Reason for Consultation: Anemia Attending Physician: Andrew Frost History of Present Illness Patient is a 64 yo female with a PMH of Psoriasis, osteoporosis, morbid obesity, tricuspid regurgitation, hypertension, hyperparathyroidism, CARLITO, GED, DM2, depression, & hyperlipidemia who was admitted to [facility] on 05/09/2019 for symptomatic anemia. Patient reports progressive dyspnea on exertion as well as what she describes as an unusual sensation in her legs. She saw her PCP prior to presentation to the ED and had an H/H performed that indicated anemia with a hemoglobin of 8.5. Prior to that, her previous Hemoglobin was drawn on 05/01 and was 13. She has no overt GI bleeding. She denies any GI symptoms at present. She denies NSAID use. She had anemia in 2017 and underwent endoscopic evaluation for this. She had a poor bowel prep and was advised to repeat the colonoscopy in 2018. Per outpatient records, she did not return calls to schedule this procedure, and she acknowledges that she did ignore this recommendation. She is currently on IV Pepcid and is NPO. Allergies Allergy/AdvReac Type Severity Reaction Status Date / Time aspirin Allergy Unknown hives Verified 05/10/19 13:29 Penicillins Allergy Unknown hives Verified 05/10/19 13:29 Home Medications Home Medications Medication Instructions Recorded Confirmed Type acetaminophen [Tylenol] 650 mg PO QID PRN 05/01/18 05/09/19 History calcium carbonate [Calcium 600] 600 mg PO DAILY 05/01/18 05/09/19 History cholecalciferol (vitamin D3) 2,000 unit PO DAILY 05/01/18 05/09/19 History [Vitamin D3] ergocalciferol (vitamin D2) 50,000 unit PO WK 05/01/18 05/09/19 History ferrous sulfate 325 mg PO DAILY 05/01/18 05/09/19 History fluticasone propionate 1 spray INTRANASAL BID 05/01/18 05/09/19 History folic acid 1 mg PO DAILY 05/01/18 05/09/19 History lansoprazole 30 mg PO DAILY 05/01/18 05/09/19 History methotrexate sodium 2.5 mg PO DIRECTED 05/01/18 05/09/19 History ondansetron HCl [Zofran] 4 - 8 mg PO Q8H PRN 05/01/18 05/09/19 History semaglutide 0.5 mg SQ WK #4.5 ml 04/03/19 05/09/19 Rx losartan 50 mg tablet 50 mg PO DAILY #90 tab 04/05/19 05/09/19 Rx amlodipine 10 mg tablet 10 mg PO DAILY #90 tab 04/13/19 05/09/19 Rx atorvastatin 20 mg tablet 20 mg PO DAILY #90 tab 04/13/19 05/09/19 Rx bupropion HCl 150 mg 24 hr tablet, 150 mg PO DAILY #90 tab 04/13/19 05/09/19 Rx extended release labetalol 300 mg tablet 300 mg PO DAILY #90 tab 04/13/19 05/09/19 Rx metformin 500 mg tablet 500 mg PO Q12H #180 tab 04/13/19 05/09/19 Rx Patient History Medical History Anemia (Acute) Cerebral vascular disease (Acute) Chronic otitis externa of both ears (Acute) CVA (cerebral vascular accident) (Resolved) Depression (Acute) DM2 (diabetes mellitus, type 2) (Acute) Generalized anxiety disorder (Acute) GERD (gastroesophageal reflux disease) (Acute) Hearing loss in left ear (Acute) Hypercalcemia (Inactive) Hyperparathyroidism, primary (Acute) Hypertension (Acute) Internal hemorrhoids (Inactive) Interstitial lung disease (Acute) Mild aortic regurgitation (Acute) Mild tricuspid regurgitation (Acute) Morbid obesity (Acute) Myopathy (Acute) Osteoporosis (Acute) Psoriasis (Acute) Psoriatic arthritis (Acute) Pulmonary nodules (Acute) Vitamin D deficiency (Inactive) Family History Other Family history non-contributory Social History Preferred Language: [place] Communication Ability: Effective Beliefs That Will Affect Care: None Current Living Situation: Alone Other Information That Helps Us Care for You: No Feels Safe at Home: Yes Safety Concerns: Feels Safe At This Time Smoking Status: Never smoker Hx Alcohol Use: No Hx Substance Use: No Review of Systems Constitutional: no fever and no chills Eyes: no acute issues Ear, Nose, Mouth, Throat: no acute issues Respiratory: + dyspnea on exertion; no cough and no dyspnea Cardiovascular: no chest pain Gastrointestinal: no abdominal pain, no heartburn, no dysphagia, no constipati on, no diarrhea/loose stools, no blood in stools and no melena Musculoskeletal: + joint pain Integumentary: no rash Neurologic: no acute issues Psychiatric: no acute issues Physical Exam Constitutional: WD/WN, vitals as above Eyes: PERRL, conjunctivae normal, anicteric sclerae ENMT: external ear and nose normal, oropharynx normal Neck: normal visual inspection Respiratory: normal respiratory effort, lungs clear to auscultation Cardiovascular: RRR, no murmur, no edema Gastrointestinal (Abdomen): normal bowel sounds, soft, nontender, no hepatosplenomegaly Musculoskeletal: no cyanosis or clubbing Skin: no rashes, warm and dry Neurologic: normal speech Psychiatric: A+Ox3, euthymic affect Results & Data ([facility]) Vital Signs (Past 12 Hours) Vital Signs Temp Pulse Pulse Resp BP BP Pulse Ox 05/10/19 11:06 36.6 C 93 H 18 128/82 95 05/10/19 08:00 82 05/10/19 07:23 36.7 C 95 H 20 149/85 H 94 05/10/19 04:20 37 C 89 20 138/84 93 05/10/19 01:40 84 PG Care Time/CCT Total # of Minutes Spent Total Time Spent with Patient: Total time spent is greater than 50% in coordi nation of care (as documented) at patient's floor/unit and/or counseling patient: Coding Level of Care Code 02716 Inpt Consult Level 4 Diagnoses Symptomatic anemia D64.9
[2019-05-10] MEDS ORDERED: PROMETHAZINE HCL 12.5 MG in SODIUM CHLORIDE 0.9% 50 ML IV PRN (13:24)
[2019-05-10] MEDS ORDERED: ONDANSETRON INJ 2 MG/ML 2 ML VIAL IV PRN (13:24)
[2019-05-10] MEDS ORDERED: fentaNYL citrate 100 MCG/2 ML VIAL IV PRN (13:24)
[2019-05-10] MEDS ORDERED: ePHEDrine sulfate 50 MG/ML AMP IV PRN (13:24)
[2019-05-10] MEDS ORDERED: ATROPINE SULFATE 0.1 MG/ML 10ML SYR IV PRN (13:24)
--- NOTE | 2019-05-10 13:28 | Anesthesiology Consultation ---
Date of Service May 10, 2019 Assessment & Plan Consults Requested medical & cardiac Pulmonary ASA ASA3 Proposed Anesthesia Anesthesia Type: MAC Risk / Benefits Reviewed With: PT / POA / Parent / Guardian, Accepts Plan and Informed Consent Obtained History Surgery Operation Date: 05/10/19 17:30 Proposed Procedures p Esophagogastroduodenoscopy Dr Mondragon - Osmin Mondragon, DO Height/Weight Height: 5 ft 5 in Weight: 126.3 kg Allergies Allergy/AdvReac Type Severity Reaction Status Date / Time aspirin Allergy Unknown hives Verified 05/10/19 13:29 Penicillins Allergy Unknown hives Verified 05/10/19 13:29 Medications Home Medications Medication Instructions Recorded Confirmed Last Taken acetaminophen [Tylenol] 650 mg PO QID PRN 05/01/18 05/09/19 05/08/19 calcium carbonate [Calcium 600] 600 mg PO DAILY 05/01/18 05/09/19 05/08/19 cholecalciferol (vitamin D3) 2,000 unit PO DAILY 05/01/18 05/09/19 05/08/19 [Vitamin D3] ergocalciferol (vitamin D2) 50,000 unit PO WK 05/01/18 05/09/19 05/08/19 ferrous sulfate 325 mg PO DAILY 05/01/18 05/09/19 05/08/19 fluticasone propionate 1 spray INTRANASAL BID 05/01/18 05/09/19 05/08/19 folic acid 1 mg PO DAILY 05/01/18 05/09/19 05/08/19 lansoprazole 30 mg PO DAILY 05/01/18 05/09/19 05/08/19 methotrexate sodium 2.5 mg PO DIRECTED 05/01/18 05/09/19 05/08/19 ondansetron HCl [Zofran] 4 - 8 mg PO Q8H PRN 05/01/18 05/09/19 05/08/19 semaglutide 0.5 mg SQ WK #4.5 ml 04/03/19 05/09/19 05/08/19 losartan 50 mg tablet 50 mg PO DAILY #90 tab 04/05/19 05/09/19 05/08/19 amlodipine 10 mg tablet 10 mg PO DAILY #90 tab 04/13/19 05/09/19 05/08/19 atorvastatin 20 mg tablet 20 mg PO DAILY #90 tab 04/13/19 05/09/19 05/08/19 bupropion HCl 150 mg 24 hr tablet, 150 mg PO DAILY #90 tab 04/13/19 05/09/19 05/08/19 extended release labetalol 300 mg tablet 300 mg PO DAILY #90 tab 04/13/19 05/09/19 05/08/19 metformin 500 mg tablet 500 mg PO Q12H #180 tab 04/13/19 05/09/19 05/08/19 Active Medications Generic Name Dose Route Start Last Admin Trade Name Freq PRN Reason Stop Dose Admin Acetaminophen 650 mg 05/09/19 16:54 05/09/19 23:31 Tylenol PO 06/08/19 16:53 650 mg QID PRN Administration pain/fever Famotidine 20 mg/ Syringe 5 mls @ 2.5 mls/min 05/09/19 21:00 05/10/19 09:12 IV 06/08/19 20:59 2.5 mls/min BID JEREMY Administration Lactated Ringer's 1,000 mls @ 80 mls/hr 05/10/19 11:30 05/10/19 13:03 Lr IV 05/11/19 12:29 0 mls/hr .[id number] JEREMY Infusion Insulin Aspart 0 units 05/09/19 17:30 05/10/19 11:33 Novolog Flexpen SC 06/08/19 17:29 Not Given ACHS JEREMY Miscellaneous 1 ea 05/10/19 00:00 05/10/19 09:09 Order Awaiting Action N/A 06/09/19 00:00 Not Given QS JEREMY NPO Date Last Intake of Fluids: 05/09/19 Time Last Intake of Fluids: 23:59 Date Last Intake of Solids: 05/09/19 Time Last Intake of Solids: 19:00 Past Medical History Medical History Anemia (Acute) Cerebral vascular disease (Acute) Chronic otitis externa of both ears (Acute) CVA (cerebral vascular accident) (Resolved) Depression (Acute) DM2 (diabetes mellitus, type 2) (Acute) Generalized anxiety disorder (Acute) GERD (gastroesophageal reflux disease) (Acute) Hearing loss in left ear (Acute) Hypercalcemia (Inactive) Hyperparathyroidism, primary (Acute) Hypertension (Acute) Internal hemorrhoids (Inactive) Interstitial lung disease (Acute) Mild aortic regurgitation (Acute) Mild tricuspid regurgitation (Acute) Morbid obesity (Acute) Myopathy (Acute) Osteoporosis (Acute) Psoriasis (Acute) Psoriatic arthritis (Acute) Pulmonary nodules (Acute) Vitamin D deficiency (Inactive) Exercise / Class Metabolic Activity II 4-5 Yardwork/Stairs/Walk up hill Past Family History Family History Other Family history non-contributory Past Anesthesia History No Hx of Anesthesia Complications and No Family Hx of Anesthesia Complications History of PONV No Hx of PONV and No Hx of Motion Sickness Social History Smoking Status: Never smoker Hx Alcohol Use: No Hx Substance Use: No Review of Systems denies fever/cough/ colds/ chest pain/ SOB/ DODIE Constitutional: no fever and no chills Respiratory: no cough and no dyspnea denies DODIE Cardiovascular: no chest pain and no dyspnea on exertion Physical Exam Vital Signs Last Vital Signs Temp 36.6 C 05/10/19 11:06 Pulse 93 H 05/10/19 11:06 Resp 18 05/10/19 11:06 BP 128/82 05/10/19 11:06 Pulse Ox 95 05/10/19 11:06 ENMT Mouth: no TMJ abnormality and no dentition abnormality Thyromental Distance: > or= 3.5 Finger Breadths Mallampati Class: II Neck + short neck; neck extension not limited Respiratory normal respiratory effort; no respiratory distress Auscultation: lungs clear to auscultation bilaterally Cardiovascular Rate/Rhythm: regular rate and regular rhythm Neurologic moves all extremities Psychiatric Orientation: alert and oriented x 3 Testing Laboratory Results 05/10/19 06:48 05/10/19 06:48 PT 11.4 Seconds (9.0-12.0) 05/09/19 Unknown INR 1.1 (0.9-1.1) 05/09/19 Unknown APTT 23.2 Seconds (21.0-31.0) 05/09/19 Unknown Blood Type O Negative 05/09/19 14:05 Antibody Screen NEGATIVE 05/09/19 14:05 05/10/19 05/10/19 11:32 07:50 POC Glucose 123 H 118 H
[2019-05-10] MEDS ORDERED: KETAMINE HCL INJ 50 MG/ML 10 ML VIAL ONE (13:49)
[2019-05-10] MEDS ORDERED: PROPOFOL IV EMULSION 10 MG/ML 20 ML VIAL IV ONE (14:12)
[2019-05-10] MEDS ORDERED: LIDOCAINE HCL 2% 2 ML VIAL/AMP(20MG/ML) INFIL ONE (14:12)
[2019-05-10] MEDS ORDERED: ONDANSETRON INJ 2 MG/ML 2 ML VIAL ONE (14:12)
[2019-05-10] MEDS ORDERED: GLYCOPYRROLATE 0.2 MG/ML VIAL ONE (14:12)
--- NOTE | 2019-05-10 14:20 | Anesthesiology Progress Note ---
Date of Service May 10, 2019 Anesthesia Post Procedure Vital Signs Vital Signs: Temp Pulse Pulse Pulse Resp BP BP 05/10/19 13:17 36.7 C 89 20 05/10/19 11:06 36.6 C 93 H 18 05/10/19 08:00 82 05/10/19 07:23 36.7 C 95 H 20 149/85 H 05/10/19 04:20 37 C 89 20 138/84 05/10/19 01:40 84 05/09/19 22:42 36.3 C L 84 20 127/83 05/09/19 19:10 36.3 C L 81 18 104/70 05/09/19 17:10 72 05/09/19 16:00 81 20 128/84 05/09/19 15:31 05/09/19 15:30 05/09/19 15:26 83 15 05/09/19 15:25 81 23 133/74 05/09/19 15:03 88 21 05/09/19 14:31 82 17 BP Pulse Ox 05/10/19 13:17 192/85 H 96 05/10/19 11:06 128/82 95 05/10/19 08:00 05/10/19 07:23 94 05/10/19 04:20 93 05/10/19 01:40 05/09/19 22:42 95 05/09/19 19:10 96 05/09/19 17:10 05/09/19 16:00 96 05/09/19 15:31 97 05/09/19 15:30 96 05/09/19 15:26 98 05/09/19 15:25 97 05/09/19 15:03 05/09/19 14:31 Transfer of Care Handoff Completed per policy Notes Mental Status: alert / awake / arousable and participated in evaluation Patient Amnestic to Procedure: Yes Nausea / Vomiting: adequately controlled Pain: adequately controlled Airway Patency, RR, SpO2: stable & adequate BP & HR: stable & adequate Hydration State: stable & adequate Anesthetic Complications: no major complications apparent and Pt Satisfied with anesthetic care
--- NOTE | 2019-05-10 14:49 | GI REPORT ---
Patient Name: Rose Blunt Procedure Date: 05/10/2019 1:47 PM Date of : 1955 Admit Type: Inpatient Age: 64 Gender: Female Attending MD: Osmin Mondragon DO Procedure: Upper GI endoscopy Providers: Osmin Mondragon DO Referring MD: Andrew Frost M.d. Indications: Acute post hemorrhagic anemia Medicines: Monitored Anesthesia Care Complications: No immediate complications. Estimated Blood Loss: Estimated blood loss: none. Procedure: Pre-Anesthesia Assessment: - Prior to the procedure, a History and Physical was performed, and patient medications and allergies were reviewed. The patient's tolerance of previous anesthesia was also reviewed. The risks and benefits of the procedure and the sedation options and risks were discussed with the patient. All questions were answered, and informed consent was obtained. Prior Anticoagulants: The patient has taken no previous anticoagulant or antiplatelet agents. ASA Grade Assessment: III - A patient with severe systemic disease. After reviewing the risks and benefits, the patient was deemed in satisfactory condition to undergo the procedure. After obtaining informed consent, the endoscope was passed under direct vision. Throughout the procedure, the patient's blood pressure, pulse, and oxygen saturations were monitored continuously. The Endoscope was introduced through the mouth, and advanced to the second part of duodenum. The upper GI endoscopy was accomplished without difficulty. The patient tolerated the procedure well. Findings: The esophagus was normal. A small hiatal hernia was present. Localized moderate inflammation characterized by erosions and erythema was found in the gastric antrum. Biopsies were taken with a cold forceps for histology. The examined duodenum was normal. Impression: - Normal esophagus. - Small hiatal hernia. - Gastritis. Biopsied. - Normal examined duodenum. Recommendation: - [facility] care. - Resume previous diet. - Continue present medications. - Await pathology results. Osmin Mondragon DO 05/10/2019 2:48:36 PM This report has been signed electronically. Note Initiated On: 05/10/2019 1:47 PM Number of Addenda: 0 I attest to the content of the Intraoperative Record and orders documented therein, exceptions below {[id number]}
[2019-05-10] MEDS: BuPROPion XL 150 MG TABCR PO SCH (17:06)
[2019-05-10] MEDS: LABETALOL HCL 300 MG TAB PO SCH (17:07)
[2019-05-10] MEDS: CHOLECALCIFEROL 1,000 UNITS 25 MCG TAB PO SCH (17:07)
[2019-05-10] MEDS: MULTIVITAMIN TAB PO SCH (17:08)
[2019-05-10] MEDS: AMLODIPINE BESYLATE 5 MG TAB PO SCH (17:08)
[2019-05-10] MEDS: ATORVASTATIN 20 MG TAB PO SCH (17:09)
[2019-05-10] MEDS: LOSARTAN POTASSIUM 50 MG TAB PO SCH (17:09)
[2019-05-10] MEDS: FOLIC ACID 1 MG TAB PO SCH (17:10)
[2019-05-10] MEDS: PANTOprazole 40 MG TAB PO SCH (17:19)
--- NOTE | 2019-05-10 22:28 | Hospitalist Progress Note ---
Date of Service May 10, 2019 Assessment & Plan (1) GI bleed: -Admit to [facility] -GI consulted, Dr. Mondragon as she has previously followed with him for colonoscopy 1 year ago. -keep patient n.p.o. for now until endoscopy later today. -Anticipate that hemoglobin was slightly overestimated/hemocncentrated. patient will receive fluids. -Hemoglobin has notmoved today and appears stable. Vitals stable too. -May require transfusion if patient remains symptomatic in 24 hours. -Patient will get endoscopy later today. -IV famotidine 20 mg IV twice daily (2) Anemia: - 2/2 to GIB vs methotrexate use? - Famotidine IV BID (3) Mild aortic regurgitation: (4) Mild tricuspid regurgitation: (5) Hypertension: -Continue ELEVATOR [employer] meds including amlodipine 10 mg daily, labetalol 300 mg daily, losartan 50 mg daily (6) Hyperlipidemia: -Continue atorvastatin 20 mg daily (7) Interstitial lung disease: -Noted, no increased worsening shortness of breath or other respiratory distress -Continue fluticasone propionate twice daily (8) DM2 (diabetes mellitus, type 2): -Holding metformin-ISS with Accu-CheIf You Can ACHS -Last A1c = 6.0 on 04/17/2019 -Continue Ozempic, next injection due tomorrow, administered weekly (9) Cerebral vascular disease: -History of hemorrhagic stroke in 2009, not on any anticoagulation secondary to such -Has residual deficit with left sided hearing loss and right hand difficulty with fine movements such as signature -BP well controlled (10) Psoriasis: -Follows with [facility] rheumatology on [address] [facility] [place] -Has been on methotrexate x4 years, takes 20 mg weekly on Saturdays, last dose was 05/06/2019 -Patient recently was found to have elevated LFTs, alk phos noted to be 128 on admission, possibly as a result of methotrexate use -Methotrexate may also be cause of anemia as above as patient denies increased NSAID use, alcohol, diet change, etc. 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 (11) Depression: (12) Generalized anxiety disorder: -Continue Wellbutrin (13) GERD (gastroesophageal reflux disease): -Protonix inhibitor as above (14) Hyperparathyroidism, primary: -Stable (15) Morbid obesity: -BMI 47 -Diet and exercise to be encouraged upon discharge, HH/DM diet once allowed per GI recommendations (16) Osteoporosis: -Continue vitamin D supplementation Admission and Anticipated Discharge Date Admission Date: May 09, 2019 Subjective Patien's main concern is that she continues to be low energy and feels fatigued. She states tat in bed however she feels fine. She attributes this to her anemia. She states that she requires IV iron transfusion in the past. Review of Systems Review of Systems: Constitutional: No fever, sweats or chills, + generalized weakness, fatigue, dizziness occasionally Eyes: No diplopia, no worsening or blurred vision ENT: normal hearing, no trouble swallowing Respiratory: No cough, sputum, dyspnea at rest, no increased shortness of breath with exertion Cardiovascular: No chest pain, tightness or palpitations Abdomen: As per HPI, no pain, nausea, vomiting, diarrhea or constipation Musculoskeletal: No joint pain, calf pain, swelling Neurologic: + Generalized weakness, no numbness/tingling, or balance problems Psychiatric: + Anxiety and depression well-controlled on Wellbutrin Skin: + Psoriasis well-controlled on methotrexate Physical Exam Physical Exam: Constitutional: WD/WN, vitals as above Eyes: normal visual roque by confrontation and + anicteric sclerae Neck: normal visual inspection and trachea midline Respiratory: normal respiratory effort, lungs clear to auscultation Cardiovascular: Rate/Rhythm: regular rate and regular rhythm Gastrointestinal (Abdomen): Inspection/Auscultation: abdomen not distended Percussion/Palpation: abdomen soft; abdomen nontender Musculoskeletal: Head/Neck/Chest: normocephalic and head atraumatic Neg for peripheral LE edema, + pedal pulses Skin: + pallor warm and dry Neurologic: awake; not confused Speech / Cognition: normal speech Psychiatric: A+Ox3, euthymic affect Results & Data ([facility]) Vital Signs (Past 12 Hours) Vital Signs Temp Pulse Pulse Resp BP BP Pulse Ox 05/10/19 18:55 36.7 C 102 H 22 140/66 90 05/10/19 18:23 82 05/10/19 15:40 91 H 20 156/81 H 94 05/10/19 14:47 100 H 20 156/72 H 95 05/10/19 14:32 100 H 20 161/83 H 95 05/10/19 14:17 104 H 20 163/80 H 96 05/10/19 13:17 36.7 C 89 20 192/85 H 96 05/10/19 11:06 36.6 C 93 H 18 128/82 95 PG Care Time/CCT Total # of Minutes Spent Total Time Spent with Patient: Total time spent is greater than 50% in coordination of care (as documented) at patient's floor/unit and/or counseling patient: Coding Level of Care Code 60770 Subseq Hosp Care Lvl 3 Diagnoses GI bleed K92.2 Anemia D64.9 Mild aortic regurgitation I35.1 Mild tricuspid regurgitation I07.1 Hypertension I10 Hyperlipidemia E78.5 Interstitial lung disease J84.9 DM2 (diabetes mellitus, type 2) E11.9 Cerebral vascular disease I67.9 Psoriasis L40.9 Depression F32.9 Generalized anxiety disorder F41.1 GERD (gastroesophageal reflux disease) K21.9 Hyperparathyroidism, primary E21.0 Morbid obesity E66.01 Osteoporosis M81.0 Time Spent (min) 35
[2019-05-11] MEDS: LACTATED RINGER'S 1,000 ML IV SCH (01:18)
[2019-05-11] MEDS: ACETAMINOPHEN 325 MG TAB PO PRN ×4 (03:13→23:48)
--- NOTE | 2019-05-11 08:02 | Anesthesiology Progress Note ---
Date of Service May 11, 2019 Anesthesia Post Procedure Vital Signs Vital Signs: Temp Pulse Pulse Resp BP BP Pulse Ox 05/11/19 07:01 36.9 C 84 18 118/65 91 05/11/19 02:24 36.7 C 76 18 109/67 91 05/11/19 00:01 74 05/10/19 23:00 36.4 C L 83 18 139/81 91 05/10/19 18:55 36.7 C 102 H 22 140/66 90 05/10/19 18:23 82 05/10/19 15:40 91 H 20 156/81 H 94 05/10/19 14:47 100 H 20 156/72 H 95 05/10/19 14:32 100 H 20 161/83 H 95 05/10/19 14:17 104 H 20 163/80 H 96 05/10/19 13:17 36.7 C 89 20 192/85 H 96 05/10/19 11:06 36.6 C 93 H 18 128/82 95 Pain Intensity Generalized: Pain Intensity: 0 Notes Mental Status: alert / awake / arousable Patient Amnestic to Procedure: Yes Nausea / Vomiting: adequately controlled Pain: adequately controlled Airway Patency, RR, SpO2: stable & adequate BP & HR: stable & adequate Hydration State: stable & adequate Anesthetic Complications: no major complications apparent and Pt Satisfied with anesthetic care
[2019-05-11] MEDS: INSULIN ASPART 100 UNITS/ML 3 ML PEN SC SCH ×4 (08:15→21:06)
[2019-05-11] MEDS: SUCRALFATE 1 GM TAB PO SCH ×4 (08:19→20:04)
[2019-05-11] MEDS: FAMOTIDINE 20 MG TAB PO SCH ×2 (08:20→20:04)
[2019-05-11] MEDS: PANTOprazole 40 MG TAB PO SCH (08:20)
[2019-05-11 08:26] LABS: Albumin Level 3.3 gm/dl (3.4-5.0); Calcium 10.5 mg/dl (8.5-10.1); Est GFR (Non-African American) 75.1; Potassium 4.2 mmol/L (3.5-5.1)
[2019-05-11 08:29] LABS: Albumin Globulin Ratio 1.1 (0.9-2); Bilirubin,Total 0.4 mg/dl (0.2-1); Globulin 3.1 gm/dl (2.5-4.0); Total Protein 6.4 gm/dl (6.4-8.2)
[2019-05-11 08:31] LABS: Hematocrit (blood only) 25.9 % (37-47); Hemoglobin 7.7 g/dL (12.0-16.0); Mean Corpuscular Hemoglobin 26.1 pg (25-34); Mean Corpuscular Hgb Conc 29.7 g/dL (32-36); Mean Corpuscular Volume 87.8 fL (80-100); Mean Platelet Volume 9.6 fL (7.4-10.4); Platelet Count 320 K/uL (130-400); RDW Coefficient of Variation 21.6 % (11.5-14.5); RDW Standard Deviation 68.5 fL (36.4-46.3); Red Blood Count 2.95 M/uL (4.2-5.4); White Blood Count 6.31 K/uL (4.8-10.8)
[2019-05-11] MEDS: LOSARTAN POTASSIUM 50 MG TAB PO SCH (08:41)
[2019-05-11] MEDS: FOLIC ACID 1 MG TAB PO SCH (08:42)
[2019-05-11] MEDS: MULTIVITAMIN TAB PO SCH (08:42)
[2019-05-11] MEDS: ATORVASTATIN 20 MG TAB PO SCH (08:42)
[2019-05-11] MEDS: AMLODIPINE BESYLATE 5 MG TAB PO SCH (08:43)
[2019-05-11] MEDS: LABETALOL HCL 300 MG TAB PO SCH (08:43)
[2019-05-11] MEDS: CHOLECALCIFEROL 1,000 UNITS 25 MCG TAB PO SCH (08:44)
[2019-05-11] MEDS: BuPROPion XL 150 MG TABCR PO SCH (08:45)
--- NOTE | 2019-05-11 10:14 | Gastroenterology Progress Note ---
Date of Service May 11, 2019 Assessment & Plan (1) Symptomatic anemia: H/H 7.7/25.9. No overt GI bleeding. EGD unremarkable for source of bleeding. Outpatient colonoscopy with 2 day prep due to history of bad prep in 2016. Our office will reach out to this patient to arrange this as well as subsequent follow-up. Continue supportive care and monitoring of H/H per primary team. Thank you for allowing us to participate in the care of this patient. If you should have any further questions or concerns, do not hesitate to contact us at [phone] or [phone]. Present on Admission?: Yes Admission and Anticipated Discharge Date Admission Date: May 09, 2019 Supervising Physician Co-Signing Physician Notes Agree with GERARDO Michaud as above Abd: Soft, NT, ND, +BS Continue current therapy Will need outpatient colonoscopy Subjective Patient is a 64 yo female hospitalized with symptomatic anemia. H/H is 7.7/25.9 today. EGD on 05/10 was unremarkable for GI bleeding. Patient is without overt GI bleeding. She reports improvement in her energy level and participated in physical therapy this AM. She is agreeable to a colonoscopy as an outpatient. She denies other concerns at present. Review of Systems Constitutional: no fever and no chills Respiratory: no cough and no dyspnea Cardiovascular: no chest pain Gastrointestinal: no abdominal pain, no bloating, no heartburn, no nausea, no hematemesis, no change in bowel habits, no diarrhea/loose stools, no blood in stools and no melena Physical Exam Constitutional: WD/WN, vitals as above Respiratory: normal respiratory effort, lungs clear to auscultation Cardiovascular: RRR, no murmur, no edema Gastrointestinal (Abdomen): normal bowel sounds, soft, nontender, no hepatosplenomegaly Musculoskeletal: no cyanosis or clubbing Skin: no rashes, warm and dry Psychiatric: A+Ox3, euthymic affect Results & Data ([facility]) Vital Signs (Past 12 Hours) Vital Signs Temp Pulse Pulse Resp BP BP Pulse Ox 05/11/19 08:00 71 05/11/19 07:01 36.9 C 84 18 118/65 91 05/11/19 02:24 36.7 C 76 18 109/67 91 05/11/19 00:01 74 02/13/20 23:00 36.4 C L 83 18 139/81 91 PG Care Time/CCT Total # of Minutes Spent Total Time Spent with Patient: Total time spent is greater than 50% in coordination of care (as documented) at patient's floor/unit and/or counseling patient: Coding Level of Care Code 51839 Subseq Hosp Care Lvl 2 Diagnoses Symptomatic anemia D64.9
--- NOTE | 2019-05-11 12:59 | Hospitalist Progress Note ---
Date of Service May 11, 2019 Assessment & Plan (1) GI bleed: Upper GI bleed due to antral gastritis. EGD completed May 10. Carafate added to famotidine and pantoprazole. Hemoglobin down to 7.7 today which may be partly dilutional. IV fluids discontinued. Will consider transfus ion if hemoglobin drops further. (2) Anemia: - 2/2 to GIB. Methotrexate may be contributing. Delusional component from IV fluids needs to be considered also. Will discontinue IV fluids today. Continue to monitor hemoglobin level. If hemoglobin drops further, consider transfusion. Continue famotidine and pantoprazole. Carafate started today. (3) Mild aortic regurgitation: (4) Mild tricuspid regurgitation: (5) Hypertension: -Continue [employer]OR [employer]ERN[employer] meds including amlodipine 10 mg daily, labetalol 300 mg daily, losartan 50 mg daily (6) Hyperlipidemia: -Continue atorvastatin 20 mg daily (7) Interstitial lung disease: -Noted, no increased worsening shortness of breath or other respiratory distress -Continue fluticasone propionate twice daily (8) DM2 (diabetes mellitus, type 2): -Holding metformin-ISS with Accu-Cheks ACHS -Last A1c = 6.0 on 04/17/2019 -Continue Ozempic, administered weekly (9) Cerebral vascular disease: -History of hemorrhagic stroke in 2009, not on any anticoagulation secondary to such -Has residual deficit with left sided hearing loss and right hand difficulty with fine movements such as signature -BP well controlled (10) Psoriasis: -Follows with [facility] rheumatology on [facility] [place] -Has been on methotrexate x4 years, takes 20 mg weekly on Saturdays, last dose was 05/06/2019 -Patient recently was found to have elevated LFTs, alk phos noted to be 128 on admission, possibly as a result of methotrexate use -Methotrexate may also be cause of anemia as above as patient denies increased NSAID use, alcohol, diet change, etc. 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 (11) Depression: (12) Generalized anxiety disorder: -Continue Wellbutrin (13) GERD (gastroesophageal reflux disease): -Protonix as above (14) Hyperparathyroidism, primary: -Stable (15) Morbid obesity: -BMI 47 -Diet and exercise to be encouraged upon discharge, HH/DM diet once allowed per GI recommendations (16) Osteoporosis: -Continue vitamin D supplementation Admission and Anticipated Discharge Date Admission Date: May 09, 2019 Subjective Alert and oriented. Hemoglobin is drifted down to 7.7 but this may be dilutional. No overt GI bleeding. IV fluids discontinued. Carafate added to famotidine and pantoprazole. Continue serial hemoglobin levels Review of Systems Review of Systems: All systems reviewed & are unremarkable except as noted in HPI & below Morbidly obese Physical Exam Constitutional: + morbidly obese and comfortable Morbidly obese Eyes: PERRL, conjunctivae normal, anicteric sclerae ENMT: external ear and nose normal, oropharynx normal Neck: trachea midline, no thyromegaly Respiratory: normal respiratory effort, lungs clear to auscultation Cardiovascular: RRR, no murmur, no edema Gastrointestinal (Abdomen): normal bowel sounds, soft, nontender, no hepatosplenomegaly Musculoskeletal: no cyanosis or clubbing, extremities motor strength 5/5 Skin: no rashes, warm and dry Neurologic: PERRL, EOMI, accommodation nl, no face palsy, no dysarthria CN's II-XI intact bilaterally Psychiatric: A+Ox3, euthymic affect Results & Data ([facility]) Vital Signs (Past 12 Hours) Vital Signs Temp Pulse Pulse Resp BP BP Pulse Ox 05/11/19 11:56 36.7 C 80 20 115/70 95 05/11/19 08:00 71 05/11/19 07:01 36.9 C 84 18 118/65 91 05/11/19 02:24 36.7 C 76 18 109/67 91 Laboratory Results 05/11/19 07:29 05/11/19 07:29 PG Care Time/CCT Total # of Minutes Spent Total Time Spent with Patient: Total time spent is greater than 50% in co ordination of care (as documented) at patient's floor/unit and/or counseling patient: Coding Level of Care Code 26825 Subseq Hosp Care Lvl 2 Diagnoses GI bleed K92.2 Anemia D64.9 Mild aortic regurgitation I35.1 Mild tricuspid regurgitation I07.1 Hypertension I10 Hyperlipidemia E78.5 Interstitial lung disease J84.9 DM2 (diabetes mellitus, type 2) E11.9 Cerebral vascular disease I67.9 Psoriasis L40.9 Depression F32.9 Generalized anxiety disorder F41.1 GERD (gastroesophageal reflux disease) K21.9 Hyperparathyroidism, primary E21.0 Morbid obesity E66.01 Osteoporosis M81.0
[2019-05-12] MEDS: ACETAMINOPHEN 325 MG TAB PO PRN ×2 (07:53→19:30)
[2019-05-12] MEDS: LOSARTAN POTASSIUM 50 MG TAB PO SCH (07:56)
[2019-05-12] MEDS: SUCRALFATE 1 GM TAB PO SCH ×4 (07:56→19:31)
[2019-05-12] MEDS: FOLIC ACID 1 MG TAB PO SCH (07:57)
[2019-05-12] MEDS: ATORVASTATIN 20 MG TAB PO SCH (07:57)
[2019-05-12] MEDS: MULTIVITAMIN TAB PO SCH (07:58)
[2019-05-12] MEDS: LABETALOL HCL 300 MG TAB PO SCH (07:58)
[2019-05-12] MEDS: AMLODIPINE BESYLATE 5 MG TAB PO SCH (07:59)
[2019-05-12] MEDS: FAMOTIDINE 20 MG TAB PO SCH ×2 (07:59→19:31)
[2019-05-12] MEDS: PANTOprazole 40 MG TAB PO SCH (08:00)
[2019-05-12] MEDS: CHOLECALCIFEROL 1,000 UNITS 25 MCG TAB PO SCH (08:00)
[2019-05-12] MEDS: BuPROPion XL 150 MG TABCR PO SCH (08:00)
[2019-05-12] MEDS: INSULIN ASPART 100 UNITS/ML 3 ML PEN SC SCH ×4 (08:01→20:56)
[2019-05-12 08:09] LABS: Hematocrit (blood only) 28.4 % (37-47); Hemoglobin 8.1 g/dL (12.0-16.0); Mean Corpuscular Hemoglobin 25.6 pg (25-34); Mean Corpuscular Hgb Conc 28.5 g/dL (32-36); Mean Corpuscular Volume 89.6 fL (80-100); Mean Platelet Volume 9.7 fL (7.4-10.4); Platelet Count 341 K/uL (130-400); RDW Coefficient of Variation 21.6 % (11.5-14.5); RDW Standard Deviation 70.5 fL (36.4-46.3); Red Blood Count 3.17 M/uL (4.2-5.4); White Blood Count 5.93 K/uL (4.8-10.8)
[2019-05-12 08:40] LABS: Albumin Level 3.7 gm/dl (3.4-5.0); BUN Creatinine Ratio 15.2 (10-20); Calcium 10.6 mg/dl (8.5-10.1); Creatinine Clr Calc Pharmacy 94.6 ml/min; Est GFR (African American) 89.7; Est GFR (Non-African American) 77.4; Potassium 4.2 mmol/L (3.5-5.1)
[2019-05-12 08:43] LABS: Albumin Globulin Ratio 1.2 (0.9-2); Bilirubin,Total 0.4 mg/dl (0.2-1); Globulin 3.1 gm/dl (2.5-4.0); Total Protein 6.8 gm/dl (6.4-8.2)
[2019-05-12] MEDS ORDERED: metHOTREXate sodium 2.5 MG TAB PO SCH (09:00)
--- NOTE | 2019-05-12 12:09 | Hospitalist Progress Note ---
Date of Service May 12, 2019 Assessment & Plan (1) GI bleed: Upper GI bleed due to antral gastritis but may also have lower GI bleeding. EGD completed May 10. Carafate added to famotidine and pantoprazole-continue all 3 Hemoglobin down to 7.7 and now up to 8.1 after IVFs stopped -give IV iron 300mg today and tomorrow as pt has failed po iron in the past -follow CBC -plans for outpt colonoscopy as per GI Appreciate GI consult (2) Anemia: - 2/2 to GIB. Hgb dropped from 13 to 8 acutely She did not notice melena but reports having a few loose stools at times, no vag bleeding or hematuria, no BRBPR EGD with gastritis, biopsies pending Colonoscopy planned as outpt Methotrexate may be contributing but had normal hgb just 1-2 months ago Continue famotidine and pantoprazole. -continue Carafate x 2 week course -give IV Venofer 300mg daily today and tomorrow If hgb stable tomorrow and no further bleeding, can dc to home tomorrow (3) Mild aortic regurgitation: noted (4) Mild tricuspid regurgitation: noted (5) Hypertension: -Continue BUSINESS MANAGEMENT ASSOCIATE meds including amlodipine 10 mg daily, labetalol 300 mg daily, losartan 50 mg daily (6) Hyperlipidemia: -Continue atorvastatin 20 mg daily (7) Interstitial lung disease: -Noted, no increased worsening shortness of breath or other respiratory distress -Continue fluticasone propionate twice daily (8) DM2 (diabetes mellitus, type 2): -Holding metformin-ISS with Accu-Cheks ACHS -Last A1c = 6.0 on 04/17/2019 -Continue Ozempic, administered weekly (9) Cerebral vascular disease: -History of hemorrhagic stroke in 2009, not on any anticoagulation secondary to such -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 patient reports her human resources assistant was considering changing the medication based on LFTs anyhow. (11) Depression: stable -continue bupropion (12) Generalized anxiety disorder: -Continue Wellbutrin (13) GERD (gastroesophageal reflux disease): -Protonix as above -continue pepcid and carafate (14) Hyperparathyroidism, primary: Not checked iPTH in 3 years--> iPTH, Vit D as calcium levels high here (15) Morbid obesity: -BMI 47 -Diet and exercise to be encouraged upon discharge (16) Osteoporosis: -hold Vit D supplementation as below for hypercalcemia (17) Hypercalcemia: hold Vit D supplements has h/o hyperparathyroid but iPTH has not been checked in 3 years With mild hypercalcemia here at 10.6 -check Vit D level, iPTH Admission and Anticipated Discharge Date Admission Date: May 09, 2019 Anticipated date of discharge: 05/13/19 Subjective Pt reports feeling better today. No longer lightheaded with standing or walking, but does feel she needs to rest after just walking across the room. Denies CP or SOB, no abd pain or heartburn. No obvious bleeding from anywhere. Tele with NSR, 1st deg AVB Review of Systems Review of Systems: All systems reviewed & are unremarkable except as noted in HPI & below Physical Exam Constitutional: WD/WN, vitals as above + morbidly obese Eyes: PERRL, conjunctivae normal, anicteric sclerae ENMT: external ear and nose normal, oropharynx normal Neck: trachea midline, no thyromegaly Respiratory: normal respiratory effort, lungs clear to auscultation Cardiovascular: RRR, no murmur, no edema Chest (Breasts): Chest: normal inspection of chest Gastrointestinal (Abdomen): normal bowel sounds, soft, nontender, no hepatosplenomegaly Musculoskeletal: Extremities: extremities normal to inspection; no cyanosis and no clubbing Skin: no rashes, warm and dry Neurologic: moves all extremities and awake; no focal motor deficits Psychiatric: A+Ox3, euthymic affect Lymphatic: no lymphedema Results & Data ([facility]) Vital Signs (Past 12 Hours) Vital Signs Temp Pulse Pulse Resp BP Pulse Ox 05/12/19 08:46 88 05/12/19 07:53 36.8 C 78 20 134/80 98 02/15/20 03:19 36.7 C 79 18 122/70 92 Laboratory Results 05/12/19 05/12/19 05/12/19 Range/Units 20:39 16:39 11:42 WBC (4.8-10.8) K/uL RBC (4.2-5.4) M/uL Hgb (12.0-16.0) g/dL Hct (37-47) % MCV (80-100) fL MCH (25-34) pg MCHC (32-36) g/dL RDW Std Deviation (36.4-46.3) fL RDW Coeff of Anderson (11.5-14.5) % Plt Count (130-400) K/uL MPV (7.4-10.4) fL Sodium (136-145) mmol/L Potassium (3.5-5.1) mmol/L Chloride (98-107) mmol/L Carbon Dioxide (21-32) mmol/L Anion Gap (3-11) BUN (7-18) mg/dl Creatinine (0.6-1.2) mg/dl Est Cr Clr Drug Dosing ml/min Est GFR ( Amer) Est GFR (Non-Af Amer) BUN/Creatinine Ratio (10-20) Glucose (70-99) mg/dl POC Glucose 116 H 123 H 138 H (70-99) mg/dl Calcium (8.5-10.1) mg/dl Total Bilirubin (0.2-1) mg/dl AST (15-37) U/L ALT (12-78) U/L Alkaline Phosphatase (45-117) U/L Total Protein (6.4-8.2) gm/dl Albumin (3.4-5.0) gm/dl Globulin (2.5-4.0) gm/dl Albumin/Globulin Ratio (0.9-2) 05/12/19 05/12/19 05/12/19 Range/Units 07:40 07:20 07:20 WBC 5.93 (4.8-10.8) K/uL RBC 3.17 L (4.2-5.4) M/uL Hgb 8.1 L (12.0-16.0) g/dL Hct 28.4 L (37-47) % MCV 89.6 (80-100) fL MCH 25.6 (25-34) pg MCHC 28.5 L (32-36) g/dL RDW Std Deviation 70.5 H (36.4-46.3) fL RDW Coeff of Anderson 21.6 H (11.5-14.5) % Plt Count 341 (130-400) K/uL MPV 9.7 (7.4-10.4) fL Sodium 137 (136-145) mmol/L Potassium 4.2 (3.5-5.1) mmol/L Chloride 104 (98-107) mmol/L Carbon Dioxide 26 (21-32) mmol/L Anion Gap 7.0 (3-11) BUN 12 (7-18) mg/dl Creatinine 0.80 (0.6-1.2) mg/dl Est Cr Clr Drug Dosing 94.6 ml/min Est GFR ( Amer) 89.7 Est GFR (Non-Af Amer) 77.4 BUN/Creatinine Ratio 15.2 (10-20) Glucose 113 H (70-99) mg/dl POC Glucose 121 H (70-99) mg/dl Calcium 10.6 H (8.5-10.1) mg/dl Total Bilirubin 0.4 (0.2-1) mg/dl AST 32 (15-37) U/L ALT 26 (12-78) U/L Alkaline Phosphatase 92 (45-117) U/L Total Protein 6.8 (6.4-8.2) gm/dl Albumin 3.7 (3.4-5.0) gm/dl Globulin 3.1 (2.5-4.0) gm/dl Albumin/Globulin Ratio 1.2 (0.9-2) PG Care Time/CCT Total # of Minutes Spent Total Time Spent with Patient: Total time spent is greater than 50% in coordination of care (as documented) at patient's floor/unit and/or counseling patient: Coding Level of Care Code 06320 Subseq Hosp Care Lvl 3 Diagnoses GI bleed K92.2 Anemia D64.9 Mild aortic regurgitation I35.1 Mild tricuspid regurgitation I07.1 Hypertension I10 Hyperlipidemia E78.5 Interstitial lung disease J84.9 DM2 (diabetes mellitus, type 2) E11.9 Cerebral vascular disease I67.9 Psoriasis L40.9 Depression F32.9 Generalized anxiety disorder F41.1 GERD (gastroesophageal reflux disease) K21.9 Hyperparathyroidism, primary E21.0 Morbid obesity E66.01 Osteoporosis M81.0 Hypercalcemia E83.52
[2019-05-12] MEDS: IRON SUCROSE 300 MG in SODIUM CHLORIDE 0.9% 250 ML IV SCH (13:31)
[2019-05-13] MEDS: ACETAMINOPHEN 325 MG TAB PO PRN (02:12)
[2019-05-13 06:39] LABS: Basophils # (auto) 0.03 K/uL (0-0.2); Basophils % (auto) 0.5 %; Eosinophils # (auto) 0.13 K/uL (0-0.5); Eosinophils % (auto) 2.1 %; Hematocrit (blood only) 27.9 % (37-47); Hemoglobin 8.1 g/dL (12.0-16.0); Immature Granulocytes # (auto) 0.01 K/uL (0.00-0.02); Immature Granulocytes % (auto) 0.2 %; Lymphocytes # (auto) 1.31 K/uL (1.2-3.4); Lymphocytes % (auto) 20.9 %; Mean Corpuscular Volume 89.7 fL (80-100); Mean Platelet Volume 8.8 fL (7.4-10.4); Monocytes # (auto) 0.54 K/uL (0.11-0.59); Monocytes % (auto) 8.6 %; Neutrophils # (auto) 4.24 K/uL (1.4-6.5); Neutrophils % (auto) 67.7 %; Platelet Count 330 K/uL (130-400); RDW Coefficient of Variation 21.5 % (11.5-14.5); RDW Standard Deviation 69.8 fL (36.4-46.3); Red Blood Count 3.11 M/uL (4.2-5.4); White Blood Count 6.26 K/uL (4.8-10.8)
[2019-05-13 07:08] LABS: Anisocytosis Present; Hypochromasia Present
[2019-05-13 07:15] LABS: BUN Creatinine Ratio 17.2 (10-20); Calcium 10.3 mg/dl (8.5-10.1); Creatinine Clr Calc Pharmacy 100.9 ml/min; Est GFR (African American) 96.9; Est GFR (Non-African American) 83.6
[2019-05-13] MEDS: LOSARTAN POTASSIUM 50 MG TAB PO SCH (08:15)
[2019-05-13] MEDS: FOLIC ACID 1 MG TAB PO SCH (08:15)
[2019-05-13] MEDS: ATORVASTATIN 20 MG TAB PO SCH (08:15)
[2019-05-13] MEDS: BuPROPion XL 150 MG TABCR PO SCH (08:15)
[2019-05-13] MEDS: SUCRALFATE 1 GM TAB PO SCH ×4 (08:15→20:16)
[2019-05-13] MEDS: LABETALOL HCL 300 MG TAB PO SCH (08:15)
[2019-05-13] MEDS: MULTIVITAMIN TAB PO SCH (08:15)
[2019-05-13] MEDS: INSULIN ASPART 100 UNITS/ML 3 ML PEN SC SCH ×4 (08:16→22:09)
[2019-05-13] MEDS: FAMOTIDINE 20 MG TAB PO SCH ×2 (08:16→20:15)
[2019-05-13] MEDS: AMLODIPINE BESYLATE 5 MG TAB PO SCH (08:16)
[2019-05-13] MEDS: PANTOprazole 40 MG TAB PO SCH (08:16)
[2019-05-13] MEDS: IRON SUCROSE 300 MG in SODIUM CHLORIDE 0.9% 250 ML IV SCH (13:31)
--- NOTE | 2019-05-13 14:23 | Hospitalist Progress Note ---
Date of Service May 13, 2019 Assessment & Plan (1) GI bleed: Upper GI bleed due to antral gastritis but may also have lower GI bleeding. EGD completed May 10. continue Carafate and pepcid x 2 week course -continue pantoprazole 40mg bid x 2 months Hemoglobin down to 7.7 and now up to 8.1 and remains stable Had small black balls of stool on 05/13 and felt lightheaded with having a BM -treating with IV iron 300mg daily x 3 days as pt has failed po iron in the past -follow CBC in AM -plans for outpt colonoscopy as per GI Appreciate GI consult (2) Anemia: - 2/2 to GIB. Hgb dropped from 13 to 8 acutely She did not notice melena but reports having a few loose stools at times, no vag bleeding or hematuria, no BRBPR EGD with gastritis, biopsies show reactive gastropathy, no dysplasia and neg for H. pylori Colonoscopy planned as outpt Methotrexate may be contributing but had normal hgb just 1-2 months ago Continue famotidine and pantoprazole. -continue Carafate x 2 week course -give IV Venofer 300mg daily x 3 days-last dose 05/14 If hgb stable tomorrow and no further bleeding, can dc to home tomorrow (3) Mild aortic regurgitation: noted (4) Mild tricuspid regurgitation: noted (5) Hypertension: -Continue PRODUCE WRAPPER meds including amlodipine 10 mg daily, labetalol 300 mg daily, losartan 50 mg daily (6) Hyperlipidemia: -Continue atorvastatin 20 mg daily (7) Interstitial lung disease: -Noted, no increased worsening shortness of breath or other respiratory distress -Continue fluticasone propionate twice daily (8) DM2 (diabetes mellitus, type 2): -Holding metformin-ISS with Accu-Cheks ACHS -Last A1c = 6.0 on 04/17/2019 -Continue Ozempic, administered weekly (9) Cerebral vascular disease: -History of hemorrhagic stroke in 2010, not on any anticoagulation secondary to such -Has residual deficit with left sided hearing loss and right hand difficulty with fine movements such as signature -BP well controlled (10) Psoriasis: -Follows with [facility] rheumatology on [employer] , [place] -Has been on methotrexate x4 years, takes 20 mg weekly on Saturdays, last dose was 05/06/2019 -Patient recently was found to have elevated LFTs, alk phos noted to be 128 on admission, possibly as a result of methotrexate use but could be fatty liver -Methotrexate may also be contributing to her anemia as above as patient denies increased NSAID use, alcohol, diet change, etc. patient reports her aerospace technician was considering changing the medication based on LFTs anyhow. (11) Depression: stable -continue bupropion (12) Generalized anxiety disorder: -Continue Wellbutrin (13) GERD (gastroesophageal reflux disease): -Protonix as above -continue pepcid and carafate (14) Hyperparathyroidism, primary: iPTH elevated at 183.6, Vit D low at 24.5, and with hypercalcemia, mild at 10.3-10.6 Follow up as outpt (15) Morbid obesity: -BMI 47 -Diet and exercise to be encouraged upon discharge (16) Osteoporosis: -hold Vit D supplementation as below for hypercalcemia (17) Hypercalcemia: Secondary to Primary hyperparathyroidism -hold Vit D supplements Vit D low at 24 (18) DVT prophylaxis: DON minor, no chemical means due to severe anemia Dispo-can go home on Tuesday after receiving 3rd IV iron and if hgb remains stable and not lightheaded Admission and Anticipated Discharge Date Admission Date: May 09, 2019 Anticipated date of discharge: 05/14/19 Subjective Pt reports she felt very lightheaded today while straining to get a few hard black balls of stool out. It scared her because she felt like she was going to pass out similar to when she first came in this admission. No diarrhea, no BRBPR. No further abd pain. She is ambulating to the bathroom and back but not much further than that. Denies chest pain or SOB. She does not feel comfortable going home just yet-is scared because of feeling lightheaded again. Tele with NSR, 70s-80s Review of Systems Review of Systems: All systems reviewed & are unremarkable except as noted in HPI & below Physical Exam Constitutional: WD/WN, vitals as above + morbidly obese Eyes: + anicteric sclerae ENMT: external ear and nose normal, oropharynx normal Neck: trachea midline, no thyromegaly Respiratory: normal respiratory effort, lungs clear to auscultation Cardiovascular: RRR, no murmur, no edema Chest (Breasts): Chest: normal inspection of chest Gastrointestinal (Abdomen): normal bowel sounds, soft, nontender, no hepatosplenomegaly Musculoskeletal: Extremities: extremities normal to inspection; no cyanosis and no clubbing Skin: no rashes, warm and dry Neurologic: moves all extremities and awake; no focal motor deficits Psychiatric: A+Ox3, euthymic affect Lymphatic: no lymphedema [facility]) Vital Signs (Past 12 Hours) Vital Signs Temp Pulse Pulse Resp BP BP Pulse Ox 05/13/19 11:31 36.6 C 74 20 114/72 96 05/13/19 08:36 82 05/13/19 07:55 36.6 C 73 20 124/69 91 05/13/19 03:53 36.6 C 76 20 134/75 97 Laboratory Results 05/13/19 05/13/19 05/13/19 Range/Units 20:33 16:14 11:34 WBC (4.8-10.8) K/uL RBC (4.2-5.4) M/uL Hgb (12.0-16.0) g/dL Hct (37-47) % MCV (80-100) fL MCH (25-34) pg MCHC (32-36) g/dL RDW Std Deviation (36.4-46.3) fL RDW Coeff of Anderson (11.5-14.5) % Plt Count (130-400) K/uL MPV (7.4-10.4) fL Immature Gran % (Auto) % Neut % (Auto) % Lymph % (Auto) % [place] % (Auto) % Eos % (Auto) % Baso % (Auto) % Immature Gran # (Auto) (0.00-0.02) K/uL Neut # (Auto) (1.4-6.5) K/uL Lymph # (Auto) (1.2-3.4) K/uL [place] # (Auto) (0.11-0.59) K/uL Eos # (Auto) (0-0.5) K/uL Baso # (Auto) (0-0.2) K/uL Hypochromasia Anisocytosis Sodium (136-145) mmol/L Potassium (3.5-5.1) mmol/L Chloride (98-107) mmol/L Carbon Dioxide (21-32) mmol/L Anion Gap (3-11) BUN (7-18) mg/dl Creatinine (0.6-1.2) mg/dl Est Cr Clr Drug Dosing ml/min Est GFR ( Amer) Est GFR (Non-Af Amer) BUN/Creatinine Ratio (10-20) Glucose (70-99) mg/dl POC Glucose 119 H 112 H 101 H (70-99) mg/dl Calcium (8.5-10.1) mg/dl 25-OH Vitamin D Total (30-100) ng/ml PTH Intact (18.4-80.1) pg/ml 05/13/19 05/13/19 05/13/19 Range/Units 07:32 06:29 06:29 WBC (4.8-10.8) K/uL RBC (4.2-5.4) M/uL Hgb (12.0-16.0) g/dL Hct (37-47) % MCV (80-100) fL MCH (25-34) pg MCHC (32-36) g/dL RDW Std Deviation (36.4-46.3) fL RDW Coeff of Anderson (11.5-14.5) % Plt Count (130-400) K/uL MPV (7.4-10.4) fL Immature Gran % (Auto) % Neut % (Auto) % Lymph % (Auto) % [place] % (Auto) % Eos % (Auto) % Baso % (Auto) % Immature Gran # (Auto) (0.00-0.02) K/uL Neut # (Auto) (1.4-6.5) K/uL Lymph # (Auto) (1.2-3.4) K/uL [place] # (Auto) (0.11-0.59) K/uL Eos # (Auto) (0-0.5) K/uL Baso # (Auto) (0-0.2) K/uL Hypochromasia Anisocytosis Sodium (136-145) mmol/L Potassium (3.5-5.1) mmol/L Chloride (98-107) mmol/L Carbon Dioxide (21-32) mmol/L Anion Gap (3-11) BUN (7-18) mg/dl Creatinine (0.6-1.2) mg/dl Est Cr Clr Drug Dosing ml/min Est GFR ( Amer) Est GFR (Non-Af Amer) BUN/Creatinine Ratio (10-20) Glucose (70-99) mg/dl POC Glucose 122 H (70-99) mg/dl Calcium (8.5-10.1) mg/dl 25-OH Vitamin D Total 24.5 L (30-100) ng/ml PTH Intact 183.6 H (18.4-80.1) pg/ml 05/13/19 05/13/19 Range/Units 06:29 06:29 WBC 6.26 (4.8-10.8) K/uL RBC 3.11 L (4.2-5.4) M/uL Hgb 8.1 L (12.0-16.0) g/dL Hct 27.9 L (37-47) % MCV 89.7 (80-100) fL MCH 26.0 (25-34) pg MCHC 29.0 L (32-36) g/dL RDW Std Deviation 69.8 H (36.4-46.3) fL RDW Coeff of Anderson 21.5 H (11.5-14.5) % Plt Count 330 (130-400) K/uL MPV 8.8 (7.4-10.4) fL Immature Gran % (Auto) 0.2 % Neut % (Auto) 67.7 % Lymph % (Auto) 20.9 % [place] % (Auto) 8.6 % Eos % (Auto) 2.1 % Baso % (Auto) 0.5 % Immature Gran # (Auto) 0.01 (0.00-0.02) K/uL Neut # (Auto) 4.24 (1.4-6.5) K/uL Lymph # (Auto) 1.31 (1.2-3.4) K/uL [place] # (Auto) 0.54 (0.11-0.59) K/uL Eos # (Auto) 0.13 (0-0.5) K/uL Baso # (Auto) 0.03 (0-0.2) K/uL Hypochromasia Present Anisocytosis Present Sodium 137 (136-145) mmol/L Potassium 4.0 (3.5-5.1) mmol/L Chloride 105 (98-107) mmol/L Carbon Dioxide 26 (21-32) mmol/L Anion Gap 6.0 (3-11) BUN 13 (7-18) mg/dl Creatinine 0.75 (0.6-1.2) mg/dl Est Cr Clr Drug Dosing 100.9 ml/min Est GFR ( Amer) 96.9 Est GFR (Non-Af Amer) 83.6 BUN/Creatinine Ratio 17.2 (10-20) Glucose 108 H (70-99) mg/dl POC Glucose (70-99) mg/dl Calcium 10.3 H (8.5-10.1) mg/dl 25-OH Vitamin D Total (30-100) ng/ml PTH Intact (18.4-80.1) pg/ml PG Care Time/CCT Total # of Minutes Spent Total Time Spent with Patient: Total time spent is greater than 50% in coordination of care (as documented) at patient's floor/unit and/or counseling patient: Coding Level of Care Code 74320 Subseq Hosp Care Lvl 2 Diagnoses GI bleed K92.2 Anemia D64.9 Mild aortic regurgitation I35.1 Mild tricuspid regurgitation I07.1 Hypertension I10 Hyperlipidemia E78.5 Interstitial lung disease J84.9 DM2 (diabetes mellitus, type 2) E11.9 Cerebral vascular disease I67.9 Psoriasis L40.9 Depression F32.9 Generalized anxiety disorder F41.1 GERD (gastroesophageal reflux disease) K21.9 Hyperparathyroidism, primary E21.0 Morbid obesity E66.01 Osteoporosis M81.0 Hypercalcemia E83.52 DVT prophylaxis Z29.9
[2019-05-14 07:21] LABS: Basophils # (auto) 0.03 K/uL (0-0.2); Basophils % (auto) 0.5 %; Eosinophils # (auto) 0.13 K/uL (0-0.5); Eosinophils % (auto) 2.2 %; Hematocrit (blood only) 28.6 % (37-47); Hemoglobin 8.3 g/dL (12.0-16.0); Immature Granulocytes # (auto) 0.02 K/uL (0.00-0.02); Immature Granulocytes % (auto) 0.3 %; Lymphocytes # (auto) 1.46 K/uL (1.2-3.4); Lymphocytes % (auto) 24.3 %; Mean Corpuscular Hemoglobin 25.9 pg (25-34); Mean Corpuscular Volume 89.4 fL (80-100); Mean Platelet Volume 9.4 fL (7.4-10.4); Monocytes # (auto) 0.42 K/uL (0.11-0.59); Neutrophils # (auto) 3.96 K/uL (1.4-6.5); Neutrophils % (auto) 65.7 %; Platelet Count 399 K/uL (130-400); RDW Coefficient of Variation 21.4 % (11.5-14.5); RDW Standard Deviation 70.4 fL (36.4-46.3); White Blood Count 6.02 K/uL (4.8-10.8)
[2019-05-14] MEDS: INSULIN ASPART 100 UNITS/ML 3 ML PEN SC SCH ×2 (07:52→12:00)
[2019-05-14 07:54] LABS: BUN Creatinine Ratio 13.2 (10-20); Calcium 10.7 mg/dl (8.5-10.1); Creatinine Clr Calc Pharmacy 97.8 ml/min; Est GFR (African American) 93.9
[2019-05-14] MEDS: ATORVASTATIN 20 MG TAB PO SCH (07:55)
[2019-05-14] MEDS: LABETALOL HCL 300 MG TAB PO SCH (07:55)
[2019-05-14] MEDS: LOSARTAN POTASSIUM 50 MG TAB PO SCH (07:55)
[2019-05-14] MEDS: FOLIC ACID 1 MG TAB PO SCH (07:56)
[2019-05-14] MEDS: AMLODIPINE BESYLATE 5 MG TAB PO SCH (07:57)
[2019-05-14] MEDS: MULTIVITAMIN TAB PO SCH (07:57)
[2019-05-14] MEDS: PANTOprazole 40 MG TAB PO SCH (07:57)
[2019-05-14] MEDS: SUCRALFATE 1 GM TAB PO SCH ×2 (07:57→12:01)
[2019-05-14] MEDS: BuPROPion XL 150 MG TABCR PO SCH (07:57)
[2019-05-14] MEDS: FAMOTIDINE 20 MG TAB PO SCH (07:59)
[2019-05-14 08:10] LABS: Anisocytosis Present; Polychromasia 1+; Tear Drop Cells 1+
[2019-05-14] MEDS ORDERED: IRON SUCROSE 300 MG in SODIUM CHLORIDE 0.9% 250 ML IV SCH (09:00)
--- NOTE | 2019-05-14 17:11 | Discharge Summary ---
Date of Service May 14, 2019 Admission HPI Per Admitting Provider This is a 64 yo F with PMhx of HTN, HLD, mild tricuspid regurg, mild aortic regurg, morbid obesity, interstitial lung disease, DM II, anemia, psoriatic arthritis, hyperparathyroidism, GERD, depression, anxiety, psoriasis, osteoporosis who present with acute onset of weakness and was found to be anemic with Hgb of 8.5 on CBC and heme positive on CATIE. The patient was evaluated last Tuesday at her PCPs office for routine exam. At that point in time she mentioned that she had increased weakness, and was instructed to have a CBC drawn, which she had done on 05/07/2019. This resulted yesterday coming back with a h emoglobin of 8.5, her PCPs office called her with the results and instructed her to come to the ER today. Patient notes that she has had increased weakness, fatigue, dizziness which has been worsening x2 weeks. Patient reports she has been eating as she typically would, drinking normally, no alcohol intake, no NSAID use. Last bowel movement was this morning, soft, formed, brown in color, denies hematochezia, BRBPR, no history of hemorrhoids. She had a colonoscopy last year which she reports was a poor prep but otherwise no abnormalities. She has had afew fainting spells where she used her walker to catch herself before any collapse, the first episode was ~3 days ago. She denies falling, LOC injury to the head or other trauma. Last time she ate was breakfast in late morning , and currently NPO. Principal Diagnosis Possible upper GI bleed Discharge Exam Constitutional WD/WN, vitals as above Eyes EOM intact bilaterally; no conjunctival abnormality ENMT external ear and nose normal, oropharynx normal Neck trachea midline, no thyromegaly normal visual inspection Respiratory normal respiratory effort, lungs clear to auscultation no respiratory distress Cardiovascular RRR, no murmur, no edema Gastrointestinal (Abdomen) Inspection/Auscultation: abdomen normal to inspection; abdomen not distended Musculoskeletal no cyanosis or clubbing, extremities motor strength 5/5 Skin no rashes, warm and dry Neurologic moves all extremities and awake Psychiatric Orientation: alert, oriented to person and cooperative Discharge Data Allergies Allergy/AdvReac Type Severity Reaction Status Date / Time aspirin Allergy Unknown hives Verified 05/10/19 13:29 Penicillins Allergy Unknown hives Verified 05/10/19 13:29 Consultations 05/09/19 13:58 ED Decision to Admit Stat 05/09/19 16:54 Consult Case Management - Discharge Planning Routine Consult Gastroenterology Routine Procedures Performed Operation Date: 05/10/19 17:30 Actual Procedures p EGD Biopsy Cytology - Osmin Mondragon, DO Hospital Course (1) GI bleed: Upper GI bleed due to antral gastritis but may also have lower GI bleeding. EGD completed May 10. - continue Carafate and pepcid x 2 week course - continue pantoprazole 40mg bid x 2 months - Treated with IV iron 300mg daily x 3 days as pt has failed po iron in the past - Follow up with outpatient GI (2) Anemia: 2/2 to GIB. Hgb dropped from 13 to 8 acutely. - No need for transfusion while inpatient. (3) Mild aortic regurgitation: noted (4) Mild tricuspid regurgitation: noted (5) Hypertension: -Continue [employer] meds including amlodipine 10 mg daily, labetalol 300 mg daily, losartan 50 mg daily (6) Hyperlipidemia: -Continue atorvastatin 20 mg daily (7) Interstitial lung disease: -Noted, no increased worsening shortness of breath or other respiratory distress -Continue fluticasone propionate twice daily (8) DM2 (diabetes mellitus, type 2): -Holding metformin-ISS with [facility] -Last A1c = 6.0 on 04/17/2019 -Continue Ozempic, administered weekly (9) Cerebral vascular disease: -History of hemorrhagic stroke in 2009, not on any anticoagulation secondary to such -Has residual deficit with left sided hearing loss and right hand difficulty with fine movements such as signature -BP well controlled (10) Psoriasis: -Follows with [facility] rheumatology on [address] [place] -Has been on methotrexate x4 years, takes 20 mg weekly on Saturdays, last dose was 05/06/2019 -Patient recently was found to have elevated LFTs, alk phos noted to be 128 on admission, possibly as a result of methotrexate use but could be fatty liver -Methotrexate may also be contributing to her anemia as above as patient denies increased NSAID use, alcohol, diet change, etc. 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 (11) Depression: stable -continue bupropion (12) Generalized anxiety disorder: -Continue Wellbutrin (13) GERD (gastroesophageal reflux disease): -Protonix as above -continue pepcid and carafate (14) Hyperparathyroidism, primary: iPTH elevated at 183.6, Vit D low at 24.5, and with hypercalcemia, mild at 10.3-10.6 Follow up as outpt (15) Morbid obesity: -BMI 47 -Diet and exercise to be encouraged upon discharge (16) Osteoporosis: -hold Vit D supplementation as below for hypercalcemia (17) Hypercalcemia: Secondary to Primary hyperparathyroidism -hold Vit D supplements Vit D low at 24 (18) DVT prophylaxis: DON hose, no chemical means due to severe anemia Dispo-can go home on Tuesday after receiving 3rd IV iron and if hgb remains stable and not lightheaded Total Time Total Time Spent Total Time Spent (In Minutes): 35 Discharge Plan Discharge Items Patient Disposition: Home - Home Health Services Reason For Visit: ANEMIA,GIB Discharge Diagnosis: GI bleed, anemia (low hemoglobin) Activity: Resume your previous activity Non-emergency contact: Primary Care Provider, Hotel [employer] Dining Room Cashier and Oncologist Call non-emergency contact if: your symptoms worsen and your pain is not controlled Follow-up/Referrals: Osmin Mondragon DO [Physician] - (Please see Dr. Mondragon in 1-2 weeks for your colonoscopy.) Rosy Cristobal MD [Primary Care Provider] - 05/16/19 12:00 pm (Your follow up appt with Dr Cristobal is on Tuesday 05/16 @ 1200. Please arrive 15 minutes prior to appt time. If this appt does not fit your schedule please call [phone] to reschedule. [id number] Lili Tamez ) Hernandez Kim DO [Physician] - (Please see Dr. Kim in 2-4 weeks for your anemia.) Diet: Carb Consistent or DM2 Addtl Attending Provider Instructions: Ms. Blunt, You were admitted to the hospital with a GI bleed and anemia. Your hemoglobin levels were low, but stable. We gave you 3 doses of IV iron to help your body rebuild your hemoglobin. Your EGD (scope of your stomach) showed moderate irritation of the lining of the stomach. Your small intestine was normal. We are starting you on oral medications to help heal the area. Please follow up with GI for your colonoscopy and to follow up on your stomach irritation. Pending Studies at Discharge: No Stand-Alone Forms: [facility], Smoking Cessation Medications and DC Order Prescriptions: New sucralfate 1 gram Tablet 1 g PO QID Qty: 120 RF: 0 famotidine 20 mg Tablet 20 mg PO BID Qty: 60 RF: 0 pantoprazole 40 mg Tablet,Delayed Release (Dr/Ec) 40 mg PO BID Qty: 60 RF: 0 Continued Ozempic 0.25 mg or 0.5 mg(2 mg/1.5 mL) pen injector 0.5 mg SQ WK Qty: 4.5 RF: 1 losartan 50 mg tablet 50 mg PO DAILY Qty: 90 RF: 1 amlodipine 10 mg tablet 10 mg PO DAILY Qty: 90 RF: 1 atorvastatin [Lipitor] 20 mg tablet 20 mg PO DAILY Qty: 90 RF: 1 bupropion HCl 150 mg tablet extended release 24 hr 150 mg PO DAILY Qty: 90 RF: 1 labetalol 300 mg tablet 300 mg PO DAILY Qty: 90 RF: 1 metformin 500 mg tablet 500 mg PO Q12H Qty: 180 RF: 1 calcium carbonate [Calcium 600] 600 mg calcium (1,500 mg) Tablet 600 mg PO DAILY RF: 0 ergocalciferol (vitamin D2) 50,000 unit Capsule 50,000 unit PO WK RF: 0 fluticasone propionate 50 mcg/actuation [place],Suspension 1 spray INTRANASAL BID RF: 0 folic acid 1 mg Tablet 1 mg PO DAILY RF: 0 methotrexate sodium 2.5 mg Tablet 2.5 mg PO DIRECTED RF: 0 ondansetron HCl [Zofran] 4 mg Tablet 4 - 8 mg PO Q8H PRN (Reason: Nausea) RF: 0 acetaminophen [Tylenol] 325 mg Tablet 650 mg PO QID PRN (Reason: pain/fever) RF: 0 cholecalciferol (vitamin D3) [Vitamin D3] 2,000 unit Capsule 2,000 unit PO DAILY RF: 0 Discontinued ferrous sulfate 325 mg (65 mg iron) Tablet 325 mg PO DAILY RF: 0 lansoprazole 30 mg Capsule,Delayed Release(Dr/Ec) 30 mg PO DAILY RF: 0 Discharge Orders: Discharge Order (Routine); Ordered 05/14/19 Ordered By: Edi Vail Admission Data Admit Date/Time: 05/09/19 15:35 Attending Provider: Edi Vail Admit Provider: Cecily Flores Primary Care Provider: Rosy Cristobal Other Providers: Osmin Mondragon ; [facility],Home Healthcare ; Edi Vail Other Interventions: Discharge Summary Assessment (RN) Last Done: 05/14/19 10:12 DC Date/Time DO NOT enter until pt leaves facility: 05/14/19 12:56 Coding Level of Care Code D/C Day Management >30 mins Diagnoses GI bleed K92.2 Anemia D64.9 Mild aortic regurgitation I35.1 Mild tricuspid regurgitation I07.1 Hypertension I10 Hyperlipidemia E78.5 Interstitial lung disease J84.9 DM2 (diabetes mellitus, type 2) E11.9 Cerebral vascular disease I67.9 Psoriasis L40.9 Depression F32.9 Generalized anxiety disorder F41.1 GERD (gastroesophageal reflux disease) K21.9 Hyperparathyroidism, primary E21.0 Morbid obesity E66.01 Osteoporosis M81.0 Hypercalcemia E83.52 DVT prophylaxis Z29.9
[2019-05-15] MEDS ORDERED: ERGOCALCIFEROL 50,000 UNITS CAP PO SCH (09:00)
== END 2019-05-14 12:56 | disposition home health service (06) | DRG 378 ==
LOC: ED 11:05 → 2N 15:35 → SUATTDRO 15:35 → 2N 16:34